=== PATIENT | female | born 1955 | race Caucasian/White ===

== ENCOUNTER 2019-08-07 23:30 | Emergency (ER) | payer MEDICARE, OTHER ==
[~2019-08-07] VITALS: Ht 167.6 cm; Wt 63.5 kg
[~2019-08-07 23:30] MED LIST: Augmentin 500-1 EACH PO; BENZ100A PO; CYCL10 PO; ESCI20 PO; NORT25 PO; OXYACE5T PO; OXYB5 PO; Prilosec Otc20 MG PO; RXOXYACE PO; VENL150ER PO
[2019-08-07] MEDS ORDERED: BUPROPION (23:44)
[2019-08-08 01:33] LABS: BASOPHILS ABSOLUTE AUTO 0.02 K/mm3 (0.00-0.23); BASOPHILS PERCENT AUTO 0 % (0-2); EOSINOPHILS ABSOLUTE AUTO 0.12 K/mm3 (0.00-0.68); EOSINOPHILS PERCENT AUTO 2 % (0-6); Hematocrit 43.3 % (33.0-51.0); Hemoglobin 13.9 g/dL (11.5-16.0); IMMATURE GRAN ABSOLUTE AUTO 0.03 K/mm3 (0.00-0.10); IMMATURE GRAN PERCENT AUTO 1 % (0-1); LYMPHOCYTES ABSOLUTE AUTO 1.57 K/mm3 (0.84-5.20); LYMPHOCYTES PERCENT AUTO 25 % (21-46); MONOCYTES ABSOLUTE AUTO 0.39 K/mm3 (0.16-1.47); MONOCYTES PERCENT AUTO 6 % (4-13); Mean Corpuscular HGB 29.7 pg (26.0-34.0); Mean Corpuscular HGB Conc 32.1 g/dL (31.5-36.5); Mean Corpuscular Volume 93 fL (80-100); Mean Platelet Volume 9.2 fL (9.1-12.4); NEUTROPHILS ABSOLUTE AUTO 4.22 K/mm3 (1.96-9.15); NEUTROPHILS PERCENT AUTO 67 % (41-73); Platelet Count 286 K/mm3 (150-400); RDW Coefficient Variation 13.6 % (11.7-14.2); RDW Standard Deviation 46.4 fL (35.1-46.3); Red Blood Cell Count 4.68 M/mm3 (3.80-5.20); White Blood Cell Count 6.35 K/mm3 (4.00-11.30)
[2019-08-08 01:49] LABS: Alanine Aminotransfer (ALT/SGP 33 U/L (12-78); Albumin, Blood 4.1 g/dL (3.4-5.0); Albumin/Globulin Ratio 1.2 (0.8-1.8); Alk Phos 71 U/L (50-136); Anion Gap 5 mmol/L (6-16); Aspartate Aminotrans (AST/SGOT 26 U/L (12-37); Bilirubin, Total 0.3 mg/dL (0.1-1.0); Blood Urea Nitrogen 11 mg/dL (8-24); Bun/Creatinine Ratio 16.6 (12.0-20.0); CO2, Blood 26 mmol/L (21-32); Calcium, Blood 9.1 mg/dL (8.5-10.1); Chloride, Blood 112 mmol/L (98-108); Creatinine, Blood 0.66 mg/dL (0.40-1.00); Globulin, Blood 3.5 g/dL (2.2-4.0); Glomerular Filtration Rate >60 (60-); Glucose, Blood 103 mg/dL (70-99); Potassium, Blood 3.7 mmol/L (3.5-5.5); Sodium, Blood 143 mmol/L (136-145); Total Protein, Blood 7.6 g/dL (6.4-8.2)
== END 2019-08-08 02:30 | disposition home or self-care (01) ==
LOC: ER 23:30
PROVIDERS: Emergency Medicine
DX: S06.369A Traumatic hemorrhage of cerebrum, unspecified, with loss of consciousness of unspecified duration, initial encounter (principal); S50.12XA Contusion of left forearm, initial encounter; S50.11XA Contusion of right forearm, initial encounter; Z88.2 Allergy status to sulfonamides; Z88.8 Allergy status to other drugs, medicaments and biological substances; Z79.899 Other long term (current) drug therapy; F17.200 Nicotine dependence, unspecified, uncomplicated; W22.8XXA Striking against or struck by other objects, initial encounter
CPT/HCPCS: 36415; 70450; 71046; 72125; 80053; 85025; 90471; 90714; 99285-25

== ENCOUNTER 2020-04-04 04:08 | Emergency (ER) | payer MEDICARE, OTHER ==
[~2020-04-04] VITALS: Ht 170.2 cm; Wt 72.6 kg
[~2020-04-04 04:08] MED LIST changes: +BUPROPION
[2020-04-04 04:35] LABS: BASOPHILS ABSOLUTE AUTO 0.08 K/mm3 (0.00-0.23); BASOPHILS PERCENT AUTO 1 % (0-2); Hematocrit 42.9 % (33.0-51.0); Hemoglobin 14.1 g/dL (11.5-16.0); LYMPHOCYTES ABSOLUTE AUTO 0.94 K/mm3 (0.84-5.20); LYMPHOCYTES PERCENT AUTO 12 % (21-46); MONOCYTES ABSOLUTE AUTO 0.33 K/mm3 (0.16-1.47); MONOCYTES PERCENT AUTO 4 % (4-13); Mean Corpuscular HGB 28.2 pg (26.0-34.0); Mean Corpuscular HGB Conc 32.9 g/dL (31.5-36.5); Mean Corpuscular Volume 86 fL (80-100); Mean Platelet Volume 10.4 fL (9.1-12.4); Platelet Count 203 K/mm3 (150-400); RDW Coefficient Variation 14.6 % (11.7-14.2); RDW Standard Deviation 46.1 fL (35.1-46.3); White Blood Cell Count 8.07 K/mm3 (4.00-11.30)
[2020-04-04 04:38] LABS: EOSINOPHILS ABSOLUTE AUTO 0.05 K/mm3 (0.00-0.68); EOSINOPHILS PERCENT AUTO 1 % (0-6); IMMATURE GRAN ABSOLUTE AUTO 0.86 K/mm3 (0.00-0.10); IMMATURE GRAN PERCENT AUTO 11 % (0-1); NEUTROPHILS ABSOLUTE AUTO 5.81 K/mm3 (1.96-9.15); NEUTROPHILS PERCENT AUTO 72 % (41-73)
[2020-04-04 05:00] LABS: Source, Urine Clean Catch
[2020-04-04 05:02] LABS: Appearance, Urine Clear (Clear); Bilirubin, Urine Neg (Neg); Blood, Urine 1+ (Neg); Color, Urine Amber (P-Yellow); Glucose Qualitative, Urine Neg (Neg); Ketones, Urine 1+ (Neg); Leukocyte Esterase, Urine 1+ (Neg); Nitrite, Urine Neg (Neg); Protein, Urine 1+ (Neg); Specific Gravity, Urine 1.015 (1.003-1.022); Urobilinogen, Urine 2+ (Normal)
[2020-04-04 05:06] LABS: Alanine Aminotransfer (ALT/SGP 1658 U/L (12-78); Albumin, Blood 2.5 g/dL (3.4-5.0); Albumin/Globulin Ratio 0.6 (0.8-1.8); Alk Phos 572 U/L (50-136); Anion Gap 15 mmol/L (6-16); Aspartate Aminotrans (AST/SGOT 561 U/L (12-37); Bilirubin, Total 2.9 mg/dL (0.1-1.0); Blood Urea Nitrogen 30 mg/dL (8-24); Bun/Creatinine Ratio 36.8 (12.0-20.0); CO2, Blood 15 mmol/L (21-32); Calcium, Blood 9.1 mg/dL (8.5-10.1); Chloride, Blood 103 mmol/L (98-108); Creatinine, Blood 0.82 mg/dL (0.40-1.00); Ethanol (Alcohol), Blood, Med <3 mg/dL; Globulin, Blood 4.2 g/dL (2.2-4.0); Glomerular Filtration Rate >60 (60-); Glucose, Blood 126 mg/dL (70-99); Potassium, Blood 3.1 mmol/L (3.5-5.5); Sodium, Blood 133 mmol/L (136-145); Total Protein, Blood 6.7 g/dL (6.4-8.2)
[2020-04-04 05:10] LABS: BASOPHILS PERCENT MAN 0 % (0-2); EOSINOPHILS ABSOLUTE MAN 0.16 K/mm3 (0.00-0.68); EOSINOPHILS PERCENT MAN 2 % (0-6); LYMPHOCYTES ABSOLUTE MAN 1.29 K/mm3 (0.84-5.20); LYMPHOCYTES PERCENT MAN 16 % (21-46); METAMYELOCYTE ABSOLUTE MAN 0.08 K/mm3 (0.00-0.00); METAMYELOCYTE PERCENT MAN 1 % (0-0); MONOCYTES ABSOLUTE MAN 0.16 K/mm3 (0.16-1.47); MONOCYTES PERCENT MAN 2 % (4-13); NEUTROPHILS ABSOLUTE MAN 6.37 K/mm3 (1.96-9.15); SEG NEUTROPHILS PERCENT MAN 79 % (41-73); TOTAL CELLS COUNTED 100
[2020-04-04 05:13] LABS: Red Blood Cells, Urine 0-2 /hpf (0-2)
[2020-04-04 05:14] LABS: Bacteria Many /hpf; Squamous Epithelial Cells Not Seen /hpf (Few)
[2020-04-04] MEDS ORDERED: CIPR500 PO (07:19)
== END 2020-04-04 09:45 | disposition home or self-care (01) ==
LOC: ER 04:08
PROVIDERS: Emergency Medicine
DX: N39.0 Urinary tract infection, site not specified (principal); E86.0 Dehydration; E87.6 Hypokalemia; R74.8 Abnormal levels of other serum enzymes; F17.200 Nicotine dependence, unspecified, uncomplicated; Z88.2 Allergy status to sulfonamides; Z88.1 Allergy status to other antibiotic agents; Z79.899 Other long term (current) drug therapy
CPT/HCPCS: 74176; 76705; 80053; 81001; 82140; 83605; 85025; 87077; 87086; 87186; 93005; 93010; 96360; 96361; 99284-25; A9270; G0480; J7030; P9612

== ENCOUNTER 2020-04-07 12:00 | Inpatient (IN) | payer MEDICARE, OTHER ==
[~2020-04-07] VITALS: Ht 172.7 cm; Wt 75.5 kg
[~2020-04-07 12:00] MED LIST changes: +CIPR500 PO
[2020-04-07 12:31] LABS: Hematocrit 35.4 % (33.0-51.0); Hemoglobin 11.9 g/dL (11.5-16.0); Mean Corpuscular HGB 27.5 pg (26.0-34.0); Mean Corpuscular HGB Conc 33.6 g/dL (31.5-36.5); Mean Corpuscular Volume 82 fL (80-100); Mean Platelet Volume 10.4 fL (9.1-12.4); Platelet Count 164 K/mm3 (150-400); RDW Coefficient Variation 15.7 % (11.7-14.2); RDW Standard Deviation 46.8 fL (35.1-46.3); Red Blood Cell Count 4.32 M/mm3 (3.80-5.20); White Blood Cell Count 30.42 K/mm3 (4.00-11.30)
[2020-04-07 12:43] LABS: Alanine Aminotransfer (ALT/SGP 366 U/L (12-78); Albumin/Globulin Ratio 0.5 (0.8-1.8); Alk Phos 545 U/L (50-136); Anion Gap 10 mmol/L (6-16); Aspartate Aminotrans (AST/SGOT 96 U/L (12-37); Bilirubin, Total 2.6 mg/dL (0.1-1.0); Blood Urea Nitrogen 30 mg/dL (8-24); CO2, Blood 20 mmol/L (21-32); Calcium, Blood 9.5 mg/dL (8.5-10.1); Chloride, Blood 109 mmol/L (98-108); Creatinine, Blood 0.67 mg/dL (0.40-1.00); Globulin, Blood 4.3 g/dL (2.2-4.0); Glomerular Filtration Rate >60 (60-); Glucose, Blood 109 mg/dL (70-99); Potassium, Blood 3.6 mmol/L (3.5-5.5); Sodium, Blood 139 mmol/L (136-145); Total Protein, Blood 6.3 g/dL (6.4-8.2)
[2020-04-07 12:57] LABS: BAND PERCENT MAN 2 % (0-8); BASOPHILS PERCENT MAN 0 % (0-2); EOSINOPHILS PERCENT MAN 0 % (0-6); LYMPHOCYTES ABSOLUTE MAN 1.21 K/mm3 (0.84-5.20); LYMPHOCYTES PERCENT MAN 4 % (21-46); MONOCYTES ABSOLUTE MAN 1.21 K/mm3 (0.16-1.47); MONOCYTES PERCENT MAN 4 % (4-13); NEUTROPHILS ABSOLUTE MAN 27.98 K/mm3 (1.96-9.15); SEG NEUTROPHILS PERCENT MAN 90 % (41-73); TOTAL CELLS COUNTED 100
[2020-04-07 13:29] LABS: International Normalized Ratio 1.21; Prothrombin Time Results 12.8 Sec (9.7-11.5); Salicylate <1.7 mg/dL (2.8-20.0)
[2020-04-07 13:35] LABS: Acetaminophen, Random <2.0 ug/mL (10.0-30.0)
[2020-04-07 13:52] LABS: Source, Urine Catheter
[2020-04-07 14:10] LABS: Appearance, Urine Hazy (Clear); Bilirubin, Urine Neg (Neg); Blood, Urine 2+ (Neg); Color, Urine Amber (P-Yellow); Glucose Qualitative, Urine Neg (Neg); Ketones, Urine 1+ (Neg); Leukocyte Esterase, Urine 1+ (Neg); Nitrite, Urine Neg (Neg); Protein, Urine 1+ (Neg); Urobilinogen, Urine 1+ (Normal)
[2020-04-07 14:17] LABS: Bacteria Mod /hpf; Red Blood Cells, Urine Not Seen /hpf (0-2); Squamous Epithelial Cells Not Seen /hpf (Few); White Blood Cells, Urine 25-50 /hpf (0-5)
[2020-04-07] MEDS ORDERED: DULOXETINE HCL60 M1 PO (15:05)
[2020-04-07] MEDS ORDERED: CYCL10 PO (15:05)
[2020-04-07] MEDS ORDERED: BUPROPION XL150 M1 PO (15:07)
--- NOTE | 2020-04-07 17:15 | NUR ---
CALLED DR MILLIGAN [facility] FOR CONSULT. DONE. HE CALLED. HOLD ;LOVENOX AND MAKE NPO MIDNITE FOR POSS PROCEDURE. DONE
--- NOTE | 2020-04-07 19:39 | NUR ---
PT ADMITTED AT 1730. SISTER MATTI IN TO HELP. I WAS ABLE TO DO QUICK ADMIT AND THE ASSESSMENT. BOTH IV FLUID BOLUS' DONE, MAINT FLUIDS STARTED. CALLED DR MILLIGAN FOR REFERRAL. HE CALLED BACK AND NPO MIDNITE AND HOLD LOVENOX. WILL SEE TOMORROW. DISCUSSED WITH ONCOMMING RN. H/R REG, NO MURMER ANOTED. TELE WAS ORDERED. LUNGS CLEAR, RESP EASY, UNLABORED. ON R.A. BT X4 LAST BM PERHAPS 2 DAYS. VOIDS INCONT. PLACED ATTENDS. PT HAS MULT SCABS ON EXTREMETIES, SMALL BRUISE ON INNER THIGH. WET MIXER AND MOVEMENT ON RT HAND IS POOR. PERHAPS RELATED TO PAIN FROM SHOULDER LESION. PT ABLE TO TOUCH NOSE WITHEACH HAND FOREFINGER. VERY SLOW WITH RT HAND. STATES PAIN. PT IS SLOW TO RESPOND, BUT RESPONDS AORIENTED 2-3. BED IN LOW POSITION,C ALL LITE IN REACH, BED ALARM ON FOR SAFETY, SISTER AT BEDSIDE.
[2020-04-07] MEDS ORDERED: CYCL10 (19:43)
[2020-04-07] MEDS ORDERED: IBUP600 (19:45)
[2020-04-07] MEDS ORDERED: Cipro500 MG PO (19:45)
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
--- NOTE | 2020-04-08 02:22 | NUR ---
DR Isbell gave 1 x dose of ativan for anxiety 0.5 mg for restless behavior. He also rx dilaudid 1 mg iv q 6 prn severe pain. Sister continues at bedside.
[2020-04-08 03:31] LABS: BASOPHILS ABSOLUTE AUTO 0.08 K/mm3 (0.00-0.23); BASOPHILS PERCENT AUTO 1 % (0-2); EOSINOPHILS ABSOLUTE AUTO 0.03 K/mm3 (0.00-0.68); EOSINOPHILS PERCENT AUTO 0 % (0-6); Hematocrit 30.5 % (33.0-51.0); Hemoglobin 10.2 g/dL (11.5-16.0); IMMATURE GRAN ABSOLUTE AUTO 0.59 K/mm3 (0.00-0.10); IMMATURE GRAN PERCENT AUTO 4 % (0-1); LYMPHOCYTES ABSOLUTE AUTO 0.92 K/mm3 (0.84-5.20); LYMPHOCYTES PERCENT AUTO 6 % (21-46); MONOCYTES ABSOLUTE AUTO 0.62 K/mm3 (0.16-1.47); MONOCYTES PERCENT AUTO 4 % (4-13); Mean Corpuscular HGB 27.9 pg (26.0-34.0); Mean Corpuscular HGB Conc 33.4 g/dL (31.5-36.5); Mean Corpuscular Volume 84 fL (80-100); NEUTROPHILS ABSOLUTE AUTO 14.03 K/mm3 (1.96-9.15); NEUTROPHILS PERCENT AUTO 86 % (41-73); Platelet Count 176 K/mm3 (150-400); RDW Coefficient Variation 16.1 % (11.7-14.2); RDW Standard Deviation 48.7 fL (35.1-46.3); Red Blood Cell Count 3.65 M/mm3 (3.80-5.20); White Blood Cell Count 16.27 K/mm3 (4.00-11.30)
[2020-04-08 03:51] LABS: Alanine Aminotransfer (ALT/SGP 255 U/L (12-78); Albumin, Blood 1.7 g/dL (3.4-5.0); Albumin/Globulin Ratio 0.4 (0.8-1.8); Alk Phos 457 U/L (50-136); Anion Gap 6 mmol/L (6-16); Aspartate Aminotrans (AST/SGOT 87 U/L (12-37); Blood Urea Nitrogen 20 mg/dL (8-24); CO2, Blood 22 mmol/L (21-32); Calcium, Blood 8.7 mg/dL (8.5-10.1); Chloride, Blood 116 mmol/L (98-108); Creatinine, Blood 0.57 mg/dL (0.40-1.00); Glomerular Filtration Rate >60 (60-); Glucose, Blood 167 mg/dL (70-99); Magnesium, Blood 2.4 mg/dL (1.6-2.4); Potassium, Blood 3.8 mmol/L (3.5-5.5); Sodium, Blood 144 mmol/L (136-145); Total Protein, Blood 5.7 g/dL (6.4-8.2)
--- NOTE | 2020-04-08 04:04 | NUR ---
positive blood culture called Lynda in Pharmacy to verify proper antibiotic coverage. Reestablished IV access with ultrasound guided placement. PT resting quietly after 0.5 mg po ativan given. incontinent of large amt of urine foul smelling.
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
--- NOTE | 2020-04-08 10:56 | NUR ---
Echocardiogram completed.
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
--- NOTE | 2020-04-08 14:16 | NUR ---
PT GOING TO SURGERY NOW
--- NOTE | 2020-04-08 15:37 | NUR ---
Spiritual cre visit conducted. Patient's Day surgery RN Genna rosarios me with a request from family for prayer. I arrive in the day surgery prep area and patient's sister Dolores is present and informs me that things are not going well for patient and that patient's O2 stats are 87 and they would like me to pray for patient and for the surgery. I gladly provide prayer. Dolores also asks if I could go fing patient's other sister Rashida. I retrieve Rashida and bring her to the surgery area. I will continue to remain available to patient and family.
--- NOTE | 2020-04-08 15:57 | NUR ---
PT REPORT FROM RAFAL SMITH RN, SISTERS AT BEDSIDE, PT SOMNOLENT, STARTLED WITH TRANSFER TO [facility]. SISTERS VERY ANXIOUS AT BEDSIDE, BROUGHT PT TO [facility] VIA [facility] WITHOUT DIFFICULTY, PT O2SATS AT 87% ON RA. TITRATED OXYGEN UP TO 3LNC TO OBTAIN SATS SUSTAINED AT 93%. TEMP 103.4, UNCOVERED PT AND PLACED COOL CLOTH TO HEAD, PT DIAPHORETIC AND FLUSHED, HR TACHY IN 110'S. B/P HYPERTENSIVE. PROVIDED EMOTIONAL SUPPORT TO FAMILY AFTER TAKING CARE OF PATIENT. SPIRITUAL CARE AND PATIENT ADVOCATE IMPLEMENTED INTO PT CARE. SPENT ALOT OF TIME TRYING TO KEEP FAMILIES ANXIETY LEVEL AT A MINIMUM WITHOUT MUCH SUCCESS. DR MILLIGAN AND ANIKA AWARE OF PT ASSESSMENT AND FAMILY CONCERNS.
--- NOTE | 2020-04-08 16:27 | NUR ---
04/08/20 1627 Melissa Benitez ALL COUNTS CORRECT.
--- NOTE | 2020-04-08 18:30 | NUR ---
SUMMARY PT BACK FROM SURGERY, FAMILY AT THE BEDSIDE, SISTERS HAVE BEEN AT THE BEDSIDE FOR MOST OF THE DAY, PT HAS REMAINED CONFUSED FOR MOST OF THE DAY, PT MED PER EMAR FOR PAIN, PT DOES NOT USE THE CALL LIGHT APPROPRIATELY, PT ONLY ANSWERING SIMPLE YES AND NO QUESTIONS, PT RETURNED WITH A DRESSING IN PLACE TO THE R SHOULDER AND A JONNY DRAIN IN PLACE, PT HAS SANGUINEOUS DRAINAGE FROM THE JONNY AND AROUND THE TUBING, DRESSING HAS BEEN REINFORCED, PT RESTLESS IN BED, THRASHING AROUND, NOT AWAKE ENOUGH TO ANSWER QUESTIONS, FAMILY WILL REMAIN AT THE BEDSIDE T/O THE NIGHT, VSS, WILL CONT TO MONITOR
[2020-04-09 05:34] LABS: Hematocrit 27.2 % (33.0-51.0); Hemoglobin 8.8 g/dL (11.5-16.0); Mean Corpuscular HGB 27.8 pg (26.0-34.0); Mean Corpuscular HGB Conc 32.4 g/dL (31.5-36.5); Mean Corpuscular Volume 86 fL (80-100); Mean Platelet Volume 9.9 fL (9.1-12.4); Platelet Count 269 K/mm3 (150-400); RDW Coefficient Variation 15.9 % (11.7-14.2); RDW Standard Deviation 50.2 fL (35.1-46.3); Red Blood Cell Count 3.17 M/mm3 (3.80-5.20); White Blood Cell Count 14.32 K/mm3 (4.00-11.30)
[2020-04-09 05:54] LABS: Anion Gap 6 mmol/L (6-16); Blood Urea Nitrogen 14 mg/dL (8-24); Bun/Creatinine Ratio 28.9 (12.0-20.0); CO2, Blood 23 mmol/L (21-32); Calcium, Blood 7.7 mg/dL (8.5-10.1); Chloride, Blood 120 mmol/L (98-108); Creatinine, Blood 0.48 mg/dL (0.40-1.00); Glomerular Filtration Rate >60 (60-); Glucose, Blood 144 mg/dL (70-99); Potassium, Blood 3.7 mmol/L (3.5-5.5); Sodium, Blood 149 mmol/L (136-145); Vancomycin, Trough 11.5 ug/mL (5.0-10.0)
--- NOTE | 2020-04-09 06:04 | NUR ---
SHIFT SUMMARY: ALERT, CONFUSED, ABLE TO SPEAK A FEW SENTENCES BETWEEN MEDICATING FOR PAIN. SISTER AT BEDSIDE. SLEPT START OF SHIFT DUE TO DILUDID. THEN SHE BECAME VERY RESTLESS, TOSSING AND TURNING IN BED, UNABLE TO GET COMFORTABLE, AND NOT UNDERSTANDING WHAT IS HAPPENING. VS WITH TACHYCARDIA IN THE 110'S, FEBRILE RUNNING 99. STILL AWAITING FINAL RESULTS OF BLOOD CULTURES. RESTLESSNESS CONTINUED TO INCREASE THROUGHOUT THE NIGHT, R/T ANXIOUSNESS AND BACK PAIN. DILAUDID GIVEN EVERY 4 HOURS BUT SHE WOULD WAKE UP PRIOR TO THAT PULLING AT LINES, VERY RESTLESS IN BED. ATTEMPTED TO GIVE FENTALYL 50MCQ AND ATIVAN ORAL. FENTALYL DID NOTHING FOR HER PAIN, AND THE ORAL ATIVAN SHE WOULD NOT SWALLOW BUT ALLOWED IT TO DISSOLVE ON HER TONGUE. DID NOT GIVE ANY OTHER ORAL MEDS DUE TO RISK OF ASPIRATION. HAD TO CALL MD DUE TO INCREASE AGGITATION RESTLESS, GOT IV ATIVAN THIS AM AND GAVE 1MG, THIS HELPED SOME. DRESSING TO RIGHT SHOULDER HAS BEEN LEAKING SEROUS SANGUOUS FLUID AROUND THE DRAIN TUBE SITE, RE-ENFORCED DRESSING WITH FOAM DRESSING AND TAPE. DRAIN HAS PUT OUT 20CC OF SEROUS SANGUOUS. SHE IS CONSTANTLY MOVING ARM WHICH IS CAUSING IT TO LEAK. LEFT DRESSING IN PLACE MD DOES FIRST DRESSING CHANGE. IV ANTIBOTICS INFUSED WITH NO PROBLEMS. TELE RUNNING SINUS TACH. ATTENDS CHANGE PRN. CALL LIGHT REMAINED IN REACH OF SISTER WHO STAYED THE NIGHT. WILL REPORT TO DAY SHIFT WHEN THEY ARRIVE.
--- NOTE | 2020-04-09 14:38 | NUR ---
Spiritual care visit conducted. I meet with patient's sister, Rashida, outside the because patient is sleeping. Rashida tells me about the events of yesterday and how things improved once patient was in for the procedure. Rashida shares about the emotions that she is trying to process and that she is trying to get out of town. I listen empathically, encourage self-care and provide a calming presence. I will continue to remain available to patient and family.
--- NOTE | 2020-04-09 17:01 | NUR ---
SUMMARY PT RESTING IN THE CHAIR AT THE BEDSIDE, FAMILY IN THE ROOM VISITING, PT HAS BEEN CONFUSED AND RESTLESS T/O THE DAY, PT MORE AWAKE AND ALERT THAN YESTERDAY, PT ABLE TO GET UP WITH 2P ASSIST AT THE BEGINNING OF THE DAY AND IS NOW A 1P ASSIST, PT WAS INCONTINENT FOR MOST OF THE DAY, HAS NOW BEGUN TO ASK TO GET UP PRIOR TO VOIDING, PT TOLERATING PILLS WHOLE WITH WATER AND TOLERATED BEING FED HER MEALS, PT WITH POOR DEPTH PERCEPTION AND UNABLE TO BRING A CUP TO HER MOUTH, PT HAS BEEN MED PER EMAR FOR PAIN, PHYSICAL THERAPY HAS WORKED WITH THE PT AND ARE RECOMMENDING SNF AT THIS TIME, FAMILY IS AGREEABLE AT THIS TIME, DR MAYO HAS BEEN IN TO SEE THE PT AND HAS CHANGED THE ANTIBIOTICS, DR MILLIGAN HAS CAME IN AND REMOVED THE JONNY DRAIN, PT ALBER WELL, VSS, NO COMPLAINTS, NO ACUTE CHANGES, WILL CONT TO MONITOR
--- NOTE | 2020-04-09 20:00 | NUR ---
ASSUMED CARE: THOMAS IS UP IN THE RECLINER SLEEPING COMFORTABLY. DOES OPEN EYES TO HER NAME. SHE IS ABLE TO ANSWER SIMPLE YES NO QUESTIONS. DENIES PAIN AT THIS TIME. JUST GOT PAIN MEDS PRIOR TO SHIFT CHANGE WHICH HAS MADE HER SLEEPY. FOLLOWS DIRECTIONS WELL. DRESSING TO SHOULDER IS STILL INTACT, MILD DRAINAGE NOTED, NO LEAKAGE. IV INFUSING FLUIDS WITH NO PROBLEMS. ATTENDS DRY. CHAIR ALARM IS ON. WILL CONTINUE TO MONITOR.
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
[2020-04-10 05:34] LABS: Hematocrit 27.5 % (33.0-51.0); Hemoglobin 8.7 g/dL (11.5-16.0); Mean Corpuscular HGB 27.5 pg (26.0-34.0); Mean Corpuscular HGB Conc 31.6 g/dL (31.5-36.5); Mean Corpuscular Volume 87 fL (80-100); Platelet Count 329 K/mm3 (150-400); RDW Coefficient Variation 15.7 % (11.7-14.2); RDW Standard Deviation 49.6 fL (35.1-46.3); Red Blood Cell Count 3.16 M/mm3 (3.80-5.20); White Blood Cell Count 10.65 K/mm3 (4.00-11.30)
[2020-04-10 05:52] LABS: Anion Gap 5 mmol/L (6-16); Blood Urea Nitrogen 16 mg/dL (8-24); Bun/Creatinine Ratio 26.7 (12.0-20.0); CO2, Blood 27 mmol/L (21-32); Calcium, Blood 8.2 mg/dL (8.5-10.1); Chloride, Blood 110 mmol/L (98-108); Glomerular Filtration Rate >60 (60-); Glucose, Blood 135 mg/dL (70-99); Potassium, Blood 3.7 mmol/L (3.5-5.5); Sodium, Blood 142 mmol/L (136-145)
--- NOTE | 2020-04-10 06:05 | NUR ---
SHIFT SUMMARY: THOMAS HAS IMPROVED VERY WELL THROUGHOUT THE NIGHT. SHE IS SPEAKING IN FULL SENTENCES, HOLDING CONVERSATIONS, RESPONDING NORMAL TO QUESTIONS. NOT RESTLESS. HAS REPORTED PAIN WHEN SHE HAS HAD IT. HAS BEEN DOWNING FLUIDS LIKE CRAZY. SISTER HAS BEEN AT HER SIDE ALL NIGHT. SHE HAS BEEN GETTING UP TO BSC WITH ASSIST. VS HAVE REMAINED STABLE. IV FLUIDS AND ANTIBOITICS INFUSED WITH OUT PROBLEMS. SHE STILL HAS SOME CONFUSION ON WHERE SHE IS AT AND WHAT HAD HAPPENED TO HER, BUT SHE IS REMEMBERING CONVERSATIONS AND DIRECTIONS. CHAIR ALARM IS ON, CALL LIGHT IN REACH. WILL REPORT TO DAY SHIFT.
[2020-04-10 08:09] LABS: HBSAG SCREEN Negative (Negative); HEP A AB, IGM Negative (Negative); HEP B CORE AB, IGM Negative (Negative); HEP C VIRUS AB <0.1 (0.0-0.9)
--- NOTE | 2020-04-10 17:11 | NUR ---
SUMMARY PT RESTING IN THE CHAIR AT THE BEDSIDE, PT HAS BEEN IN THE CHAIR FOR MOST OF THE DAY, DOES NOT TOLERATE BEING IN THE BED, IS CONFUSED AND RESTLESS, UP WITH 1-2 PERSON ASSIST, MIXED CONTINENCE, TAKES HER PILLS WHOLE WITH WATER WELL, DOES NEED TO BE FED MEALS, PT WORKED WITH PT/OT, STILL WITH A RECOMMENDATION OF SNF AT DISCHARGE, PT MED PER EMAR FOR S/S PAIN, DR MILLIGAN HERE TO CHANGE THE DRESSING TO THE R SHOULDER, 5 INCH LONG INCISION WITH STITCHES INTACT, AREA BRUISED, NO BLEEDING OR OOZING NOTED, PT ALBER WELL, PT WITH LOW GRADE TEMP, GIVEN TYLENOL WITH GOOD RESULTS, VSS, WILL CONT TO MONITOR
--- NOTE | 2020-04-10 20:00 | NUR ---
ASSUMED CARE. THOMAS IS IMPROVING WELL. SHE IS ABLE TO STATES PLACE, EVENT, FAMILY, FOLLOW DIRECTIONS, AND READ THE DATE AND TIME OFF THE BOARD. SHE KNOWS HOW TO USE HER CALL LIGHT, AND DOES NOT TRY TO GET UP ON HER OWN. STILL REPORTS PAIN IN SHOULDER AND ALL OVER. MEDICATED FOR PAIN AND DISCOMFORT. IV ANTIBOTIC STARTED. STILL DRINKING SEVERAL GLASSES OF WATER THROUGHOUT THE DAY. DRY MOUTH IS IMPROVING. NOTED SHE IS STARTED TO GET THRUSH ON THE SIDE OF HER GUMS AND BACK OF THROAT. SHE ALSO HAS NOT HAD A BM SINCE SHE WAS ADMITTED. WILL CALL MD REGARDING THESE ISSUES. CALL LIGHT IS IN HER REACH.
--- NOTE | 2020-04-10 20:25 | NUR ---
LAB CALLED TO REPORT POSITIVE BLOOD CULTURES GRAM + COCCI IN CLUSTERS. THIS IS THE SAME GROWTH SHE HAD ON THE LAST BLOOD CULTURES. PAIN BETTER CONTROLLED.
--- NOTE | 2020-04-10 21:17 | NUR ---
CALLED TOÑA RONQUILLO, REPORTED NO BM SINCE ADMIT AND THRUSH IN MOUTH. ORDER FOR NYSTATIN SWISH AND SWALLOW, COLACE AND SENNA. WILL START TONIGHT.
--- NOTE | 2020-04-10 23:52 | NUR ---
LAB CALLED WITH ANOTHER POSITIVE BLOOD CULTURE WITH THE SAME BACTERIA.
[2020-04-11 05:28] LABS: Hematocrit 30.4 % (33.0-51.0); Hemoglobin 9.8 g/dL (11.5-16.0); Mean Corpuscular HGB 27.3 pg (26.0-34.0); Mean Corpuscular HGB Conc 32.2 g/dL (31.5-36.5); Mean Corpuscular Volume 85 fL (80-100); Platelet Count 427 K/mm3 (150-400); RDW Coefficient Variation 14.9 % (11.7-14.2); RDW Standard Deviation 45.9 fL (35.1-46.3); Red Blood Cell Count 3.59 M/mm3 (3.80-5.20); White Blood Cell Count 13.54 K/mm3 (4.00-11.30)
[2020-04-11 05:58] LABS: Alanine Aminotransfer (ALT/SGP 270 U/L (12-78); Albumin, Blood 1.6 g/dL (3.4-5.0); Albumin/Globulin Ratio 0.4 (0.8-1.8); Alk Phos 305 U/L (50-136); Anion Gap 7 mmol/L (6-16); Aspartate Aminotrans (AST/SGOT 131 U/L (12-37); Bilirubin, Total 2.4 mg/dL (0.1-1.0); Blood Urea Nitrogen 12 mg/dL (8-24); Bun/Creatinine Ratio 18.3 (12.0-20.0); CO2, Blood 27 mmol/L (21-32); Calcium, Blood 8.3 mg/dL (8.5-10.1); Chloride, Blood 102 mmol/L (98-108); Creatinine, Blood 0.65 mg/dL (0.40-1.00); Globulin, Blood 4.5 g/dL (2.2-4.0); Glomerular Filtration Rate >60 (60-); Glucose, Blood 94 mg/dL (70-99); Potassium, Blood 3.6 mmol/L (3.5-5.5); Sodium, Blood 136 mmol/L (136-145); Total Protein, Blood 6.1 g/dL (6.4-8.2)
--- NOTE | 2020-04-11 06:12 | NUR ---
SHIFT SUMMARY: ALERT AND ORIENTED TO PLACE, EVENT, FAMILY, FOLLOWING DIRECTION, ABLE TO USE CALL LIGHT, AND HOLD CONVERSATION. SHE DOES HAVE SOME TROUBLE WITH DATE AND TIME. SLEPT WELL THROUGHOUT THE NIGHT IN THE BED. DID GET PAIN MEDICATION X2 THIS EVENING. 2ND ROUND OF BLOOD CULTURES POSITIVE FOR GRAM+ COCCI IN CLUSTERS, SAME PREVIOUS ONES. UNABLE TO COLLECT UA DUE TO INCONTIENCE IN THE NIGHT. CALLED TOÑA BOBBIN DOFFER AND REPORTED THRUSH IN ORAL CAVITY, AND NO BM SINCE ADMIT. GOT COLACE, SENNA AND NYSTATIN SWISH AND SWALLOW. ADMINISTERED ALL THREE. DISCUSSED POSSIBLE NEED FOR DIFLUCAN TO PREVENT YEAST INFECTION, AND SHE WILL NEED TO BE STARTED ON PROBIOTICS. VS STILL TACHY AT TIMES, AFEBRILE. WBC ELEVATED UP TO 13 THIS MORNING. LIVER ENZYMES ALSO ELEVATED. BED ALARM HAS REMAINED ON. CALL LIGHT IN REACH, WILL DISCUSS CARE WITH DAY SHIFT.
--- NOTE | 2020-04-11 11:42 | NUR ---
I had premission to bladder scan julio, the amount i scanned was 781 at 1135
[2020-04-11 13:36] LABS: U Amphetamine Screen Not Detected; U Barbituate Screen Not Detected; U Benzodiazapine Screen DETECTED; U Cocaine Screen Not Detected; U Methadone Screen Not Detected; U Methamphetamine Screen Not Detected
[2020-04-11 13:37] LABS: U Buprenorphine Screen Not Detected; U Cannabinoids Screen Not Detected; U Opiates Screen Not Detected; U Oxycodone Screen DETECTED; U Phencyclidine Screen Not Detected; U Propoxyphene Screen Not Detected
--- NOTE | 2020-04-11 17:20 | NUR ---
PT AOX2-3 IT CAN VERY ON HOW AWAKE SHE IS AT THE TIME. PT STARTED SHIFT OUT LOOKING VERY UNCOMFORTABLE AND WAS STATING HER PAIN WAS A 7. PT WAS TREATED FOR PAIN PER EMAR. PT SEEMED TO DO BETTER THE MORNING WENT BY AND IS NOW COMFORTABLE IN HER ROOM AND DOESN'T APPEAR TO BE IN PAIN WHEN LOOKING AT HER. PT IS ALSO TALKING MORE. CALL LIGHT IS WITHIN REACH WILL CONTINUE TO MONITOR.
--- NOTE | 2020-04-11 20:51 | NUR ---
PT HAD LARGE INCONTINENT ATTENDS DIAPERS; PT WAS BLADDER SCANNED FOR > 691; DR RUIZ NOTIFIED WITH ORDERS TO PLACE IBRAHIM CATHETER. (MD WAS ADVISED OF PREVIOUS STRAIGHT CATHETERIZATION AT 1100 TODAY).
--- NOTE | 2020-04-11 21:44 | NUR ---
64 Y/O FEMALE RESTING COMFORTABLY IN BED; CHEERFUL; ALERT AND ORIENTED X 3; ABLE TO FOLLOW SIMPLE VERBAL COMMANDS; RIGHT SHOULDER DRESSING DRY AND INTACT; DENIES PAIN.
[2020-04-11 22:02] LABS: Source, Urine Catheter
[2020-04-11 22:04] LABS: Bilirubin, Urine Neg (Neg); Blood, Urine Neg (Neg); Glucose Qualitative, Urine Neg (Neg); Ketones, Urine Neg (Neg); Leukocyte Esterase, Urine Neg (Neg); Nitrite, Urine Neg (Neg); Protein, Urine Neg (Neg); Urobilinogen, Urine 2+ (Normal)
[2020-04-11 22:14] LABS: Appearance, Urine Clear (Clear); Color, Urine Yellow (P-Yellow)
--- NOTE | 2020-04-12 03:50 | NUR ---
SHIFT SUMMARY: 64 Y/O FEMALE RESTED COMFORTABLY ALL SHIFT; PT IS ALERT AND ORIENTED X 4, ABLE TO FOLLOW ALL SIMPLE VERBAL COMMANDS; PT HAD BLADDER SCAN RESULT > 691 WITH HOSPITALIST NOTIFIED AND IBRAHIM CATHETER WAS PLACED WITH 700ML FRANSISCA FLUID NOTED BY PASCUAL MCGOVERN RN (UA SENT TO LAB); C/O RIGHT SHOULDER PAIN 7/10 WITH TYLENOL 650MG PO GIVEN WITH RELIEF FELT; RIGHT SHOULDER DRESSING DRY AND INTACT; TELEMETRY REFLECTS SINUS TACHYCARDIA PER BRANT--INTERNAL RECRUITER; BED LOW POSITION WITH CALL LIGHT AT SIDE.
--- NOTE | 2020-04-12 19:08 | NUR ---
SHIFT SUMMARY: NO ACUTE CHANGES TO REPORT THIS SHIFT. PT A&O; OCC CONFUSION; CALM AND COOPERATIVE WITH CARE. MEDICATED FOR R SHOULDER PAIN PER EMAR; LIDOCAINE TOP TO L FLANK. TELE IN PLACE; ST IN LOW 100s. FOLE IN PLACE; PATENT & DRAINING. I&D ON R SHOULDER ON 04/10; DRESSING C/D/I. POSITIVE BLOOD CULTURES; STAPH GROWING; OXACILLIN Q4. REPORT GIVEN TO ONCOMING RN.
--- NOTE | 2020-04-13 05:10 | NUR ---
SUMMARY PT HAD PAIN OFF AND ON T/O SHIFT. PT TX PER EMAR W/ RELIEF. PT HAD NO NOTED CHILLS OR FEVERS. PT HAS SLEPT WELL THIS SHIFT. PT CURRENTLY SLEEPING IN NO DISTRESS. CALL LIGHT IN REACH.
[2020-04-13 05:18] LABS: Hematocrit 23.9 % (33.0-51.0); Hemoglobin 7.6 g/dL (11.5-16.0); Mean Corpuscular HGB 27.2 pg (26.0-34.0); Mean Corpuscular HGB Conc 31.8 g/dL (31.5-36.5); Mean Corpuscular Volume 86 fL (80-100); Platelet Count 544 K/mm3 (150-400); RDW Coefficient Variation 14.9 % (11.7-14.2); RDW Standard Deviation 46.2 fL (35.1-46.3); Red Blood Cell Count 2.79 M/mm3 (3.80-5.20); White Blood Cell Count 9.16 K/mm3 (4.00-11.30)
[2020-04-13 05:42] LABS: Alanine Aminotransfer (ALT/SGP 93 U/L (12-78); Albumin, Blood 1.2 g/dL (3.4-5.0); Albumin/Globulin Ratio 0.3 (0.8-1.8); Alk Phos 200 U/L (50-136); Anion Gap 8 mmol/L (6-16); Aspartate Aminotrans (AST/SGOT 38 U/L (12-37); Blood Urea Nitrogen 9 mg/dL (8-24); Bun/Creatinine Ratio 14.4 (12.0-20.0); CO2, Blood 28 mmol/L (21-32); Calcium, Blood 7.6 mg/dL (8.5-10.1); Chloride, Blood 102 mmol/L (98-108); Creatinine, Blood 0.63 mg/dL (0.40-1.00); Globulin, Blood 4.1 g/dL (2.2-4.0); Glomerular Filtration Rate >60 (60-); Glucose, Blood 100 mg/dL (70-99); Potassium, Blood 3.3 mmol/L (3.5-5.5); Sodium, Blood 138 mmol/L (136-145); Total Protein, Blood 5.3 g/dL (6.4-8.2)
--- NOTE | 2020-04-13 14:55 | NUR ---
Met pt in bed resting, she reports to be doing well encouraged pt., offered prayes and spiritual support.
--- NOTE | 2020-04-13 15:36 | NUR ---
Spiritual care visit conducted. Patient is sitting up in bed and alert. Patient tells me about her progress in decreased pain and discomfort and improved mental clarity but patient says she has a long way to go. Patient shares about personal issues and how these issues are affecting her today. We discuss her martin and family which are sources of strength to patient. I listen empathically, normalize patient's experience, and provide pastoral parliamentary counsel and prayer. Patient responds well and shows signs of catharsis and improved hope. I will continue to assist patient and family with the emotional/spiritual aspects of the medical conditions.
--- NOTE | 2020-04-13 17:09 | NUR ---
PT IS A/OX3, PLEASANT AND COOPERATIVE, PT IS WEAK ON HER FEET AND HAS LIMITED MOVENET IN HER UE, PT WAS MEDICATED FOR PAIN T/O THE DAY, THE PT WORKED WITH THE PHYSICAL AND OCCUPATIONAL THERAPIST TODAY AND TOLERATED FAIRLY, THE PT WAS UP IN THE CHAIR AT THE BEDSIDE FOR BREAKFAST AND FOR LUNCH, THE PT IS SOB WITH LITTLE EXCERTION, APPEARS TO BE BREATHING EASILY AT REST WITHOUT OXYGEN, A STEVE WAS ORDERED FOR THE PT AND WAS CONSULTED AND HAS SEEN THE PT, FAMILY WAS IN TO SEE THE PT, THE PT HAD A SMALL BM TODAY, CALL LIGHT IN REACH, WILL CONTINUE TO MONITOR AND ASSESS FOR CHANGES
--- NOTE | 2020-04-13 20:30 | NUR ---
ASSUMED CARE: THOMAS HAS SLIDE DOWN IN BED, APPEARS TO BE VERY UNCOMFORTABLE. OFFERED TO GET HELP TO MOVE HER UP IN BED. SHE REFUSED. OFFERED TO PUT PILLOWS AT LEAST BEHIND HER AND AGAIN SHE REFUSED. STATES SHE HURTS ALL OVER. JUST GOT PAIN MEDS NOT TO LONG AGO. OFFERED HER THE HEATING PAD AND AGAIN NO. LUNG SOUNDS CLEAR, HR SINUS, TELE IN PLACE. IV FLUIDS KVO, IV ANTIBOTIC HUNG. CATHETER PATENT AND DRAINING. BLE EDEMA +1 ELEVATED ON PILLOWS. DRESSING TO SHOULDER HAS MINIMAL DRAINAGE, INTACT. ADMINISTERED MEDS. ABLE TO STATE ORIENTATION QUESTIONS, SMILES AND IS IN GOOD MOOD. VS WNL. WILL CONTINUE TO MONITOR.
--- NOTE | 2020-04-13 23:19 | NUR ---
YANDEL REPORTS THAT THOMAS STATES THERE IS SOMEONE COMING OUT OF HER WHITE BOARD AND IS IN HER ROOM. SHE TURNED ON THE LIGHTS AND SHOWED HER THERE WAS NO ONE THERE. SHE SAID SHE CAN HEAR THEM. REASSURED HER THAT SHE IS SAFE AND NO ONE IS THERE.
--- NOTE | 2020-04-13 23:35 | NUR ---
HEMOTOLOGY CALLED REPORTING POSITIVE BLOOD CULTURES, SAME RESULTS PREVIOUS. NO CHANGE. WILL NOTE.
--- NOTE | 2020-04-13 23:55 | NUR ---
THOMAS WAS AWAKE BUT WAS NOT ACTING LIKE HERSELF. ASKED HER WHAT IS WRONG. SHE BEGAN TO TELL ME ABOUT THE OPENING UNDERNEATH THE WHITE BOARD AND ALL THE PEOPLE LOOKING AT HER. TRIED TO RE-ORIENT HER AND SHE GOT VERY UPSET AND ANGRY NOT UNDERSTANDING THAT THERE WAS NOTHING THERE BUT A WALL. EVEN ENCOURAGED HER TO TRY AND GET UP TO SEE FOR HERSELF BUT SHE REFUSED. REFUSED TO EVEN MOVE IN BED. WAS ABLE TO PUT THE HEAD OF HER BED DOWN AT LEAST. WILL MONITOR. CALL LIGHT IN REACH.
--- NOTE | 2020-04-14 05:45 | NUR ---
SHIFT SUMMARY; AOX3 AT START OF SHIFT BUT EVENTUALLY BECAME CONFUSED DURING THE NIGHT, HULLUCINATIONS OF PEOPLE IN THE ROOM, TALKING TO SELF, AUDITORY HULLUCINATIONS AND BEHAVIORAL CHANGES. WHEN TRYING TO REORIENT, SHE GOT IRRITATED AND ANGRY THINKING WE WERE LYING TO HER. SHE EVEN ATTEMPTED TO GET OUT OF BED FORGETTING SHE WAS IN THE HOSPITAL OR THAT SHE HAD A CATHETER. VS WERE WNL, AFEBRILE. BLOOD CULTURES + FOR GRAM + COCCI IN CLUSTERS. PAIN CONSISTED ALL OVER BODY NEEDING OXYCODONE EVERY 4 HOURS. REFUSED REPOSITIONING. NPO AFTER MIDNIGHT FOR DR. GUERRERO. GOOD CATHETER OUTPUT OF 1300. IV INTAKE 1823, PO INTAKE 960 THIS SHIFT. MILD SWELLING TO BLE. SLEPT OFF AND ON BUT NOT CONSISTENT. BED ALARM REMAINED ON, CALL LIGHT IN REACH.
[2020-04-14 05:46] LABS: Hematocrit 22.3 % (33.0-51.0); Hemoglobin 7.3 g/dL (11.5-16.0); Mean Corpuscular HGB 27.9 pg (26.0-34.0); Mean Corpuscular HGB Conc 32.7 g/dL (31.5-36.5); Mean Corpuscular Volume 85 fL (80-100); Mean Platelet Volume 9.5 fL (9.1-12.4); Platelet Count 682 K/mm3 (150-400); RDW Coefficient Variation 15.2 % (11.7-14.2); Red Blood Cell Count 2.62 M/mm3 (3.80-5.20); White Blood Cell Count 9.15 K/mm3 (4.00-11.30)
[2020-04-14 06:10] LABS: Anion Gap 7 mmol/L (6-16); Blood Urea Nitrogen 7 mg/dL (8-24); Bun/Creatinine Ratio 11.2 (12.0-20.0); CO2, Blood 26 mmol/L (21-32); Calcium, Blood 7.8 mg/dL (8.5-10.1); Chloride, Blood 104 mmol/L (98-108); Creatinine, Blood 0.63 mg/dL (0.40-1.00); Glomerular Filtration Rate >60 (60-); Glucose, Blood 101 mg/dL (70-99); Potassium, Blood 3.4 mmol/L (3.5-5.5); Sodium, Blood 137 mmol/L (136-145)
[2020-04-14 08:41] LABS: Percent Saturation 14.3 % (15.0-50.0)
--- NOTE | 2020-04-14 10:59 | NUR ---
Met pt sitting in a chair and talking with her nurse in the room who is attending to her needs, prayed for the pt.
--- NOTE | 2020-04-14 11:52 | NUR ---
PT TAKEN TO THE HEART CENTER VIA WHEELCHAIR ALERT ANXIUOS, APPEARED TO BE BREATHING EASILY
--- NOTE | 2020-04-14 13:47 | NUR ---
PT IS BACK FROM THE HC A/O APPEARS TO BE BREATHING EASILY, MEDICATED THE PT FOR PAIN, CALL LIGHT IN REACH, FAMILY AT THE BEDSIDE
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
--- NOTE | 2020-04-14 20:15 | NUR ---
ASSUMED CARE. THOMAS WAS SITTING UP IN THE RECLEINER AND APPARENTLY PULLED OUT HER IV WHICH WAS STILL INFUSING. SHE HAD BLOOD ALL OVER HER GOWN, CHAIR AND LAP. SISTER FOUND HER THAT WAY. SHE WAS CLEANED UP AND IV WAS STOPPED. RADIAL DRILL PRESS SET UP OPERATOR GOT HER BACK TO BED. ATTEMPTED TO START NEW IV AND WAS UNSUCCESSFUL. CALLED PROCESS IMPROVEMENT ENGINEERGIORGI GARCIA TO SEE START ONE. THOMAS IS ABLE TO ANSWER ALL ORIENTATION QUESTIONS BUT WITH HULLUCINATIONS BOTH AUDITORY AND VISUAL. WHEN MENTIONED SHE GETS FRUSTRATED AND THINKS THE STAFF IS CALLING HER CRAZY SO SHE TRYS TO HIDE IT. THE PERIODS OF CONFUSION COME AND GO BUT TEND TO GET ALOT WORSE AT NIGHT. MEDICATED FOR PAIN GENERALIZED ALL OVER BUT MOSTLY IN BACK. POOR APPETITE STILL DISPITE SISTER ENCOURAGING HER TO EAT. CATHETER STILL PATENT AND DRAINING. SWELLING NOTED ON LEFT MEDIAL SIDE OF ARM AROUND THE ELBOW AREA LIKE THE IV INFILTRATED BUT WAS NOT SWOLLEN AT IV INSERTION SITE. CONCERN FOR THAT JOINT HAVING PROBLEMS LIKE THE SHOULDER. WILL MONITOR, CURRENTLY NO WARMTH OR REDNESS NOTED. BED ALARM IS ON. RADHA RAND IN THE ROOM.
--- NOTE | 2020-04-15 05:22 | NUR ---
SHIFT SUMMARY: THOMAS ALERT AND ORIENTED WITH PERIODS OF CONFUSION AND HULLUCINATIONS, TALKING TO SELF IN THE ROOM. REPORTS PAIN GENERALIZED ALL OVER BUT MOSTLY HER NECK, ARMS, ELBOWS AND LOWER BACK. BILATERAL ELBOWS ARE VERY SWOLLEN, TENDER TO TOUCH BUT NO REDNESS. SHE REPORTS THAT HER JOINTS STARTED HURTING WHEN SHE STARTED TO GET ILL. MEDICATED WITH OXYCODONE PRN. SHE DOES NOT LIKE TO BE MOVED DUE TO THE PAIN. IV FLUIDS AND ANTIBOTICS INFUSED WITH NO ISSUES. NEW IV WAS STARTED IN HER LEFT AC. POOR APPETITE. GOOD HYDRATION. CONCERNED ABOUT THE EDEMA IN HER JOINTS AND THE PAIN IT IS CAUSING HER. WILL PASS ONTO DAY SHIFT. CALL LIGHT REMAINED IN REACH, BED ALARM ON.
[2020-04-15 06:09] LABS: BASOPHILS ABSOLUTE AUTO 0.04 K/mm3 (0.00-0.23); BASOPHILS PERCENT AUTO 0 % (0-2); EOSINOPHILS ABSOLUTE AUTO 0.08 K/mm3 (0.00-0.68); EOSINOPHILS PERCENT AUTO 1 % (0-6); Hematocrit 23.6 % (33.0-51.0); Hemoglobin 7.3 g/dL (11.5-16.0); IMMATURE GRAN ABSOLUTE AUTO 0.25 K/mm3 (0.00-0.10); IMMATURE GRAN PERCENT AUTO 3 % (0-1); LYMPHOCYTES ABSOLUTE AUTO 1.06 K/mm3 (0.84-5.20); LYMPHOCYTES PERCENT AUTO 11 % (21-46); MONOCYTES ABSOLUTE AUTO 0.63 K/mm3 (0.16-1.47); MONOCYTES PERCENT AUTO 7 % (4-13); Mean Corpuscular HGB 27.4 pg (26.0-34.0); Mean Corpuscular HGB Conc 30.9 g/dL (31.5-36.5); Mean Corpuscular Volume 89 fL (80-100); Mean Platelet Volume 9.2 fL (9.1-12.4); NEUTROPHILS ABSOLUTE AUTO 7.66 K/mm3 (1.96-9.15); NEUTROPHILS PERCENT AUTO 79 % (41-73); Platelet Count 836 K/mm3 (150-400); RDW Coefficient Variation 15.5 % (11.7-14.2); RDW Standard Deviation 48.6 fL (35.1-46.3); Red Blood Cell Count 2.66 M/mm3 (3.80-5.20); White Blood Cell Count 9.72 K/mm3 (4.00-11.30)
[2020-04-15 06:46] LABS: Albumin, Blood 1.4 g/dL (3.4-5.0); Anion Gap 6 mmol/L (6-16); Blood Urea Nitrogen 6 mg/dL (8-24); Bun/Creatinine Ratio 10.5 (12.0-20.0); CO2, Blood 26 mmol/L (21-32); Calcium, Blood 7.9 mg/dL (8.5-10.1); Chloride, Blood 103 mmol/L (98-108); Creatinine, Blood 0.57 mg/dL (0.40-1.00); Glomerular Filtration Rate >60 (60-); Glucose, Blood 90 mg/dL (70-99); Phosphorus, Blood 3.9 mg/dL (2.5-4.9); Potassium, Blood 3.5 mmol/L (3.5-5.5); Sodium, Blood 135 mmol/L (136-145)
--- NOTE | 2020-04-15 13:44 | NUR ---
Pt. is sitting in a chair and her therapist in the room attending to her needs , offered prayers and spiritual support.
--- NOTE | 2020-04-15 19:00 | NUR ---
SHIFT SUMMARY: NO ACUTE CHANGES TO REPORT THIS SHIFT. PT ALERT; CONFUSED R/T TBI; COOPERATIVE WITH CARE. MEDICCATED FOR BACK & NECK PAIN PER EMAR; LIDOCAINE TOP IN PLACE TO L LOWER BACK. IBRAHIM IN PLACE; PATENT & DRAINING. TELE IN PLACE; SR c 1DEG BLOCK @ 92. BLOOD CULTURES POSITIVE FOR STAPH; OXACILLIN Q4; INFECTIOUS DISEASE FOLLOWING. REPORT GIVEN TO ONCOMING RN.
--- NOTE | 2020-04-15 20:30 | NUR ---
ASSUMED CARE: THOMAS IS DOING MUCH BETTER WITH HER MEMORY. SHE IS ABLE TO ANSWER ALL ORIENTATION QUESITONS. SHE IS IN A MUCH BETTER MOOD. HER PAIN HAS BEEN AVERAGING A 5 AT THE HIGHEST. SHE IS MOVING AROUND MUCH BETTER. HER APPETITE IS STILL VERY POOR. ENCOURAGE HER TO EAT MORE. IV FLUIDS RUNNING AT KVO FOR EVERY 4HR ANTIBOTICS. CATHETER STILL PATIENT. ASSISTED TO BEDSIDE COMMODE 1 ASSIST. LARGE FORMED BROWN BM NOTED. ASSISTED BACK TO BED REPOSITIONED TO HELP SUPPORT HER NECK. GAVE PM MEDS AND PAIN PILL. STRAIGHTENED UP THE ROOM AND CLEANED IT FOR HER. GAVE HER SOME MAGAZINES AND BIBLE TO HAVE SOMETHING TO DO. CALL LIGHT IS IN REACH.
--- NOTE | 2020-04-15 22:22 | NUR ---
SPOKE TO TOÑA RONQUILLO REGARDING SLEEPING AID AND DC OF FENTANYL THE PATIENT DOES NOT USE THIS MEDICATIONS. ORDER RECEIVED. WENT TO ROOM THE PATIENT WAS ASLEEP.
--- NOTE | 2020-04-16 05:22 | NUR ---
SHIFT SUMMARY: MENTAL STATUS IMPROVED THROUGHOUT THE NIGHT- EVIDENCE BY PT REMEMBERING ORIENTATION, NO HULLUCINATIONS OR TALKING TO SELF. EDEMA IS CONSISTENT IN THE BILATERAL ELBOWS AND BLE. PAIN CONSTANT IN LOWER BACK AND NECK, NEEDING OXYCODONE Q4 HOURS. PAIN IS 3-5 ON AVERAGE. ABLE TO TURN SELF AND USE BED CONTROLS FOR REPOSITIONING 50% OF TIME. IV FLUIDS CONTINUE ON KVO. MD CALLED FOR SLEEP AID. MELATONIN WAS GIVEN. HELD RESTROL TONIGHT. WHICH MAY BEEN THE IMPROVEMENT IN MENTATION. LARGE BM NOTED. ROOM STRAIGHTEN UP AND CLEANED. PT GIVEN MAGAZINES AND BIBLE TO KEEP COMPANY. DRESSING REMAINED INTACT. CALL LIGHT IN REACH, BED ALARM ON. WILL REPORT TO DAY SHIFT.
--- NOTE | 2020-04-16 14:19 | NUR ---
ORDER CLARIFICATION DR. MAYO CALLED TO CLARIFY NM SCAN ORDER. DR. MAYO CONFIRMED THAT HE WANTED THE WHITE CELL TEST DONE. PT TO HAVE SCAN TOMORROW.
--- NOTE | 2020-04-16 16:32 | NUR ---
SHIFT SUMMARY DR. MAYO ORDERED FOR NV WHITE CELL SCAN TO BE COMPLETED. WILL OCCUR TOMORROW ACCORDING TO NUC MED. PT INTERMIDETELY CONFUSED. VERY FORTGETFUL. RESPONDS TO REORIENTATION WELL. NO CHANGES IN SWELLING T/O BODY SINCE THIS AM. PT VOIDING WELL. BLADDER TRAINING IN PROGRESS. PT UP TO CHAIR FOR MOST THE DAY. WORKED WITH PT/OT THIS SHIFT. NO OTHER CHANGES IN ASSESSMENT AT THIS TIME. DRESSING TO L SHOULDER C/D/I. WILL CONTINUE TO MONITOR UNTIL TURNOVER IS COMPLETE. VS REVIEWED.
--- NOTE | 2020-04-16 16:45 | NUR ---
SHIFT SUMMARY PT REQUIRING 2L O2 STILL TO MAINTAIN O2 SATS. TELEMETRY IN PLACE AND RUNNING NSR IN THE 80S PER MANAGEMENT ASSISTANT. PT SITTING UP IN BED, SNACKING ON WATERMELON. DENIES CP OR SOB AT THIS TIME. SLIGHT EDEMA TO LEGS. OTHERWISE NORMAL ASSESSMENT. PT UP IN ROOM INDEPENDENTLY. CALL LIGHT AT BEDSIDE. VS REVIEWED. WILL CONTNUE TO MONITOR UNTIL TURNOVER IS COMPLETE.
[2020-04-17 05:43] LABS: BASOPHILS ABSOLUTE AUTO 0.02 K/mm3 (0.00-0.23); BASOPHILS PERCENT AUTO 0 % (0-2); EOSINOPHILS ABSOLUTE AUTO 0.08 K/mm3 (0.00-0.68); EOSINOPHILS PERCENT AUTO 1 % (0-6); Hematocrit 23.8 % (33.0-51.0); Hemoglobin 7.2 g/dL (11.5-16.0); IMMATURE GRAN ABSOLUTE AUTO 0.22 K/mm3 (0.00-0.10); IMMATURE GRAN PERCENT AUTO 3 % (0-1); LYMPHOCYTES ABSOLUTE AUTO 1.04 K/mm3 (0.84-5.20); LYMPHOCYTES PERCENT AUTO 15 % (21-46); MONOCYTES ABSOLUTE AUTO 0.54 K/mm3 (0.16-1.47); MONOCYTES PERCENT AUTO 8 % (4-13); Mean Corpuscular HGB Conc 30.3 g/dL (31.5-36.5); Mean Corpuscular Volume 89 fL (80-100); Mean Platelet Volume 9.6 fL (9.1-12.4); NEUTROPHILS ABSOLUTE AUTO 5.06 K/mm3 (1.96-9.15); NEUTROPHILS PERCENT AUTO 73 % (41-73); Platelet Count 846 K/mm3 (150-400); RDW Standard Deviation 49.5 fL (35.1-46.3); Red Blood Cell Count 2.67 M/mm3 (3.80-5.20); White Blood Cell Count 6.96 K/mm3 (4.00-11.30)
[2020-04-17 06:17] LABS: Alanine Aminotransfer (ALT/SGP 36 U/L (12-78); Albumin, Blood 1.4 g/dL (3.4-5.0); Albumin/Globulin Ratio 0.3 (0.8-1.8); Alk Phos 193 U/L (50-136); Anion Gap 7 mmol/L (6-16); Aspartate Aminotrans (AST/SGOT 25 U/L (12-37); Bilirubin, Total 0.7 mg/dL (0.1-1.0); Blood Urea Nitrogen 5 mg/dL (8-24); Bun/Creatinine Ratio 9.1 (12.0-20.0); CO2, Blood 25 mmol/L (21-32); Calcium, Blood 7.8 mg/dL (8.5-10.1); Chloride, Blood 105 mmol/L (98-108); Creatinine, Blood 0.55 mg/dL (0.40-1.00); Globulin, Blood 4.3 g/dL (2.2-4.0); Glomerular Filtration Rate >60 (60-); Glucose, Blood 91 mg/dL (70-99); Potassium, Blood 3.2 mmol/L (3.5-5.5); Sodium, Blood 137 mmol/L (136-145); Total Protein, Blood 5.7 g/dL (6.4-8.2)
--- NOTE | 2020-04-17 06:30 | NUR ---
SHIFT SUMMARY LYING IN SEMI FOWLERS WITH EYES CLOSED. MEDICATED FOR PAIN PER MD ORDERS. ATTEMPTED TO AMBULATE TO COMMODE WITH ASSISTACE, BUT UNABLE TO TOLERATE. ABLE TO GET BACK INTO BED WITH MINIMAL ASSISTANCE, AND DIRECTION AND GUIDANCE. DENIES PAIN, DISCOMFORT, OR FURTHER NEEDS AT THIS TIME. SAFETY MEASURES IN PLACE. WILL CONTINUE TO MONITOR AND GIVE HAND OFF TO ONCOMING SHIFT USING SBAR DURING BEDSIDE REPORT.
--- NOTE | 2020-04-17 09:38 | NUR ---
DR. GANDHI ORDERED TO GIVE 1MG PO ATIVAN PRIOR TO PT SCAN FOR NUC MED TO HELP WITH ANXIETY
--- NOTE | 2020-04-17 13:20 | NUR ---
Spiritual care visit conducted. Patient is sitting on a chair and alert. Patient tells me about the procedure that her doctor has initiated, about the difficult morning she has had with stiffness and soreness and about the plan to have her go to [facility]. Patient also talks about her family visits and phone calls and how much they mean to her. Patient weaves her martin into the discussion at every opportunity and emphasizes the importance of her martin to her sanity. I normalize patient's worries and fears, and provide spiritual career and guidance counselor and prayer. Patient responds well and shows signs of an elevated mood. I will continue to remain available to patient and family.
--- NOTE | 2020-04-17 18:40 | NUR ---
SHIFT SUMMARY PT HAD NUC MED WHITE CELL SCAN COMPLETED THIS SHIFT. FAMILY AT BEDSIDE. PT UP TO CHAIR MOST THE DAY. CONT/INC VOIDS T/O SHIFT. PT RECIEVED ONE TIME ATIVAN 2MG DOSE PRIOR TO SCAN. PT ALERT, BUT MORE DISORIENTED FROM THIS. PT STATES SHE FEELS "LOOPY" NO OTHER ACUTE CHANGES IN ASSESSMENT AT THIS TIME. VS REVIEWED. WILL CONTINUE TO MONITOR UNTIL TURNOVER IS COMPLETE.
--- NOTE | 2020-04-18 04:11 | NUR ---
SUMMARY PT HAS SOME NOTED HALLUCINATIONS THIS SHIFT. PT PAIN HAS BEEN MANAGED WELL. PT HAS BEEN VOIDING VIA BSC. PT HAS SLEPT SOME AND IS CURRENTLY AWAKE. CALL LIGHT IN REACH AND BED ALARM ON.
[2020-04-18 08:14] LABS: BASOPHILS ABSOLUTE AUTO 0.05 K/mm3 (0.00-0.23); BASOPHILS PERCENT AUTO 1 % (0-2); EOSINOPHILS ABSOLUTE AUTO 0.08 K/mm3 (0.00-0.68); EOSINOPHILS PERCENT AUTO 1 % (0-6); Hematocrit 25.5 % (33.0-51.0); IMMATURE GRAN ABSOLUTE AUTO 0.24 K/mm3 (0.00-0.10); IMMATURE GRAN PERCENT AUTO 3 % (0-1); LYMPHOCYTES ABSOLUTE AUTO 1.23 K/mm3 (0.84-5.20); LYMPHOCYTES PERCENT AUTO 15 % (21-46); MONOCYTES ABSOLUTE AUTO 0.71 K/mm3 (0.16-1.47); MONOCYTES PERCENT AUTO 9 % (4-13); Mean Corpuscular HGB 27.6 pg (26.0-34.0); Mean Corpuscular HGB Conc 31.4 g/dL (31.5-36.5); Mean Corpuscular Volume 88 fL (80-100); Mean Platelet Volume 8.5 fL (9.1-12.4); NEUTROPHILS ABSOLUTE AUTO 6.04 K/mm3 (1.96-9.15); NEUTROPHILS PERCENT AUTO 72 % (41-73); White Blood Cell Count 8.35 K/mm3 (4.00-11.30)
[2020-04-18 08:25] LABS: Platelet Count 1006 K/mm3 (150-400)
[2020-04-18 08:29] LABS: Anion Gap 7 mmol/L (6-16); Blood Urea Nitrogen 6 mg/dL (8-24); Bun/Creatinine Ratio 13.4 (12.0-20.0); CO2, Blood 25 mmol/L (21-32); Calcium, Blood 8.1 mg/dL (8.5-10.1); Chloride, Blood 104 mmol/L (98-108); Creatinine, Blood 0.45 mg/dL (0.40-1.00); Glomerular Filtration Rate >60 (60-); Glucose, Blood 87 mg/dL (70-99); Magnesium, Blood 2.2 mg/dL (1.6-2.4); Potassium, Blood 3.6 mmol/L (3.5-5.5); Sodium, Blood 136 mmol/L (136-145)
--- NOTE | 2020-04-18 09:33 | NUR ---
MORNING SUMMARY PT HANDOFF TO GIORGI JOY, @0850. REPORT AT BEDSIDE, RM 353. HIGH FALL RISK DUE TO IMPULSIVENESS. ALERT AND ORIENTED BUT FORGETFUL. DTR NOTIFIED OF ROOM CHANGE. MD NOTIFIED OF CRITICAL PLT COUNT 1006. PT ORIENTED TO ROOM, CALL LIGHT IN REACH, BED ALARM ON.
--- NOTE | 2020-04-18 18:09 | NUR ---
SUMMARY PT WAS TRANSFERED TO [facility]U THIS AM D/T IMPULSIVE BEHAVIOR, GETTING UP W/O ASSIST, FALL RISK. SHE HAS USED CALL SYSTEM APPROPRIATELY SINCE ARRIVING TO RM 353. SHE IS A/O X3, PLEASANT AFFECT, HX TBI. SHE HAS BUE TREMOR THAT SHE STATE STARTED RECENTLY w CURRENT ILLNESS. DX BACTEREMIA, QUESTIONABLE SOURCE/REPORT NUC MED WBC SCAN YESTERDAY WAS NEGATIVE. SHE HAD I&D R SHOULDER ABCESS. IV ANTIBX CONTINUE. WBC WNL, AFEBRILE. ESR ELEVATED >140. PLT CH 1006. SHE STATE WEAKNESS/FATIGUE. STATE NECK & BACK PAIN. HAVE GIVEN OXYCODONE & TYLENOL FOR RELIEF. R SHOULDER SURG SITE w SUTURES IN PLACE, WOUND CARE/DRSG CHANGE PROVIDED. SHE HAS BEEN UP IN CHAIR, UP TO BR w 1 ASSIST, CONT/INCONT. VSS.
--- NOTE | 2020-04-18 19:45 | NUR ---
pt moved to back mcknight for confussion. Attemtpted to see today will follow up with family on advance care planning.
[2020-04-19 05:07] LABS: BASOPHILS ABSOLUTE AUTO 0.05 K/mm3 (0.00-0.23); BASOPHILS PERCENT AUTO 1 % (0-2); EOSINOPHILS ABSOLUTE AUTO 0.08 K/mm3 (0.00-0.68); EOSINOPHILS PERCENT AUTO 1 % (0-6); Hematocrit 24.9 % (33.0-51.0); Hemoglobin 7.6 g/dL (11.5-16.0); IMMATURE GRAN ABSOLUTE AUTO 0.27 K/mm3 (0.00-0.10); IMMATURE GRAN PERCENT AUTO 3 % (0-1); LYMPHOCYTES ABSOLUTE AUTO 1.34 K/mm3 (0.84-5.20); LYMPHOCYTES PERCENT AUTO 17 % (21-46); MONOCYTES PERCENT AUTO 9 % (4-13); Mean Corpuscular HGB 27.8 pg (26.0-34.0); Mean Corpuscular HGB Conc 30.5 g/dL (31.5-36.5); Mean Corpuscular Volume 91 fL (80-100); Mean Platelet Volume 8.4 fL (9.1-12.4); NEUTROPHILS PERCENT AUTO 69 % (41-73); Platelet Count 906 K/mm3 (150-400); RDW Coefficient Variation 16.4 % (11.7-14.2); RDW Standard Deviation 52.6 fL (35.1-46.3); Red Blood Cell Count 2.73 M/mm3 (3.80-5.20); White Blood Cell Count 7.94 K/mm3 (4.00-11.30)
--- NOTE | 2020-04-19 05:08 | NUR ---
SHIFT SUMMARY PT CONTINUES TO COMPLAIN OF R SHOULDER PAIN AND BACK PAIN. MEDICATED FOR PAIN PER ORDERS. Q4HR ABX CONTINUED. PT A/OX4, PLESANT WITH CARE. PT SLEPT IN RECLINER FOR MOST OF THE NIGHT AND REFUSED THE BED WHEN ASKED. EDEMA TO BLE ELEVATES EXTREMITIES WHILE IN CHAIR. HER ASSESSMENT IS UNCHANGED OVERNIGHT. VITALS STABLE. BED IN LOWEST POSITION, CALL LIGHT WITHIN REACH. WILL CONTINUE TO MONITOR AND REPORT TO ONCOMING RN.
--- NOTE | 2020-04-19 15:56 | NUR ---
SUMMARY PT IS A/O X3, PLEASANT AFFECT. SHE STATE FEELING SOMEWHAT BETTER TODAY THAN PREVIOUS DAY HOWEVER STATE CONTINUING NECK-BACK PAIN, HAVE GIVEN PRN OXYCODONE & TYLENOL FOR RELIEF. DRESS FINISHER GAVE HER SHOWER TODAY, ALLOWED PT TO SIT UNDER HOT WATER,SHE STATE GAVE HER GOOD BACK PAIN RELIEF. WBC WNL, SHE HAS BEEN AFEBRILE T/O DAY. IV ANTIBX CONTINUE. VSS.
--- NOTE | 2020-04-20 06:20 | NUR ---
SHIFT SUMMARY PT HAS HAD OFF AND ON PAIN T/O THE NIGHT. MEDICATED PER EMAR WITH EFFECT. PT HAS ALTERNATED BETWEEN THE BED AND THE CHAIR TO HELP ALLEVIATE HER BACK/NECK AND SHOULDER PAIN. PT AMBULATES WELL WITH SBA. VITALS ARE STABLE. Q4HR ANTIBITOICS CONTINUED. PT IS A/OX4, PLESANT. PLAN IS FOR POSS DC TODAY. NO ACUTE CHANGES OVERNIGHT. BED IN LOWEST POSITION, CALL LIGHT WITHIN REACH.
[2020-04-20 11:33] LABS: BASOPHILS ABSOLUTE AUTO 0.07 K/mm3 (0.00-0.23); BASOPHILS PERCENT AUTO 1 % (0-2); EOSINOPHILS ABSOLUTE AUTO 0.08 K/mm3 (0.00-0.68); EOSINOPHILS PERCENT AUTO 1 % (0-6); Hematocrit 24.5 % (33.0-51.0); Hemoglobin 7.4 g/dL (11.5-16.0); IMMATURE GRAN ABSOLUTE AUTO 0.22 K/mm3 (0.00-0.10); IMMATURE GRAN PERCENT AUTO 2 % (0-1); LYMPHOCYTES ABSOLUTE AUTO 1.28 K/mm3 (0.84-5.20); LYMPHOCYTES PERCENT AUTO 13 % (21-46); MONOCYTES ABSOLUTE AUTO 0.58 K/mm3 (0.16-1.47); MONOCYTES PERCENT AUTO 6 % (4-13); Mean Corpuscular HGB 27.5 pg (26.0-34.0); Mean Corpuscular HGB Conc 30.2 g/dL (31.5-36.5); Mean Corpuscular Volume 91 fL (80-100); Mean Platelet Volume 8.3 fL (9.1-12.4); NEUTROPHILS ABSOLUTE AUTO 7.75 K/mm3 (1.96-9.15); NEUTROPHILS PERCENT AUTO 78 % (41-73); Platelet Count 881 K/mm3 (150-400); Red Blood Cell Count 2.69 M/mm3 (3.80-5.20); White Blood Cell Count 9.98 K/mm3 (4.00-11.30)
--- NOTE | 2020-04-20 13:10 | NUR ---
Spiritual care visit conducted. Patient tells me about her improved condition but expresses that she a long ways to go. Patient states that there are many people pulling for her but it is her martin that gets her through. Patient talks about how difficult it is to wait on test results because it still feels, becuse the source of the infection is unclear, that she is hitting at the wind. I provide therapeutic listening, anxiety containment, pastoral student counselor and prayer. Patient responds well and shows signs of reduced stress. I will continue to remain available to patient and family.
--- NOTE | 2020-04-20 18:03 | NUR ---
SHIFT SUMMARY PT IS A&O. PT HAS BEEN IN PAIN MOST OF THE SHIFT. PRN MEDICATION HAS BEEN GIVEN TO HELP CONTROL PAIN LEVEL. ADDITIONAL NON PHARMILOGICAL PAIN MANAGEMENT HAS BEEN DONE TO HELP WHEN MEDICATION IS NOT AVAILABLE. PT USES DEEP BREATHING AND THE MEDITATION CHANNEL TO HAS HELPED. PHYSICAL THERPHY HELPED PT WALK THE SHEPHERD, PT ENJOYED IT. PT DOES FORGET LIMITATIONS AT TIMES AND NEED TO BE REMINDED TO USE THE CALL LIGHT. MRI SCHEDULED FOR TOMORROW. PT EATING DINNER IN HER CHAIR CURENTLY. PAIN LEVEL AT 1. NO COMPLAINTS OF N/V DURING SHIFT. 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
--- NOTE | 2020-04-20 19:50 | NUR ---
ASSUMED CARE. THOMAS REMEMBERED ME FROM PREVIOUS WEEKS OF TAKING CARE OF HER. AOX3, FORGETFUL AT TIMES. LUNG SOUNDS ARE CLEAR. HR SINUS. NO CHEST PAIN, SOB, OR LIGHTHEADNESS. STATES APPETITE HAS IMPROVED ALOT SINCE THRUSH HAS GOTTEN BETTER IN MOUTH. SKIN WITH REDNESS IN GROIN AREA. BARRIER CREAM PRN. ABLE TO GET UP MOSTLY ON HER OWN. USES WALKER TO GET TO THE BATHROOM. SHE IS STURDY ON HER FEET. PAIN IS 7/10 TO SOON TO GIVE MEDS. OFFERED HEATING PAD, STATES SHE WILL BE OK. EDEMA NOTED TO BLE, WHEN GETTING BACK TO BED, SHE ELEVATES ON PILLOWS. IV FLUIDS INFUSING. CALL LIGHT IN REACH.
--- NOTE | 2020-04-21 06:29 | NUR ---
SHIFT SUMMARY: THOMAS HAD A GOOD NIGHT DISPITE HER BEING UP AND DOWN. SHE IS DOING BETTER, ABLE TO AMBULATE TO THE BATHROOM WITH NO ASSISTANCE OTHER THEN IV. SHE IS AOX3 THROUGHOUT THE NIGHT, NO CONFUSION. SHE USED HER CALL LIGHT EVERY TIME. PAIN IS MANAGED WITH OXYCODONE, AT TIMES SHE HAS INCREASED IN PAIN WHERE WE HAVE HAD TO USE TYLENOL IN BETWEEN DOSAGES. THIS PAIN TENDS TO START WITH IN THE 3 HOURS AFTER HER DOSE. SHE IS UNABLE TO SLEEP DUE TO THIS. IV CONTINUED TO INFUSE, ANTIBOTICS ADMINISTERED. VS WNL, AFEBRILE. NO OTHER CHANGES TO NOTE THIS SHIFT. WILL REPORT TO DAY SHIFT. CALL LIGHT IN REACH.
--- NOTE | 2020-04-21 11:01 | NUR ---
Met pt. lying in bed and talking with her visitore in the room , pt. reports doing much better encouraged pt. and offered prayers
[2020-04-21 15:54] LABS: Body Fluid Crystals NEG (NEGATIVE)
[2020-04-21 16:11] LABS: RBC Count, Synovial Fluid 20000 /mm3 (0-0)
[2020-04-21 16:32] LABS: WBC Count, Synovial Fluid 56060 /mm3 (0-180)
[2020-04-21 16:41] LABS: Lymphs, Synovial Fluid 3 % (0-15); Monocytes/Macrophages, Synovia 1 % (0-65); Neutrophils, Synovial Fluid 96 % (0-24)
[2020-04-21 16:44] LABS: Appearance, Synovial Fluid Turbid (Clear); Color, Synovial Fluid Yellow (None-P Yel)
--- NOTE | 2020-04-21 17:31 | NUR ---
PT HAS BEEN AOX4 AND COOPERATIVE OF CARE ALL DAY. PT TREATED FOR NECK AND BACK PAIN PER EMAR. DR QUINTERO ORDERED MRI TO BE DONE. UPON COMPLETION IT WAS FOUND PT HAD MULTIPLE ABCESSES IN HER SPINE AND PT NEEDED AIR FLIGHTED TO [facility]. NECK [facility] WAS APPLIED AND REPORT WAS CALLED AT 1635 TO RECIEVING GIORGI LUNDBERG. PT WAS PREPPED AND QUICKLY ORGANIZED TO FLY OUT. CHARGE TO NOTIIFY FAMILY OF TRANSPORT. PERSONAL BELONGINGS WENT WITH PT. PT STOOD FROM CHAIR TO [facility] SHE HAS BEEN AMBULATING ALL DAY. NO DISTRESS NOTED. IV ANTIBOTIC DUE AT 1600 SENT WITH PT TO BE GIVEN IN FLIGHT.
== END 2020-04-21 16:58 | disposition short-term general hospital (02) | DRG 853 ==
LOC: ER 12:00 → MEDS 16:10
PROVIDERS: Emergency Medicine; Hospitalist; Internal Medicine; Internal Medicine Infectious Disease; Nurse Practitioner Acute Care; Orthopaedic Surgery; ADMIT Internal Medicine
PROC: 0RBJ0ZZ Excision of Right Shoulder Joint, Open Approach (ICD-10-PCS; principal; 2020-04-08 12:15)
DX: A41.01 Sepsis due to Methicillin susceptible Staphylococcus aureus (principal); G92 Toxic encephalopathy; G06.1 Intraspinal abscess and granuloma; N39.0 Urinary tract infection, site not specified; M00.811 Arthritis due to other bacteria, right shoulder; L02.413 Cutaneous abscess of right upper limb; I76 Septic arterial embolism; B96.20 Unspecified Escherichia coli [E. coli] as the cause of diseases classified elsewhere; E87.6 Hypokalemia; R65.20 Severe sepsis without septic shock; K21.9 Gastro-esophageal reflux disease without esophagitis; R74.0 Nonspecific elevation of levels of transaminase and lactic acid dehydrogenase [LDH]; R79.89 Other specified abnormal findings of blood chemistry; Z87.820 Personal history of traumatic brain injury; F32.9 Major depressive disorder, single episode, unspecified; F17.210 Nicotine dependence, cigarettes, uncomplicated
CPT/HCPCS: 10030; 20610; 36415; 70450; 71045; 72156; 72158; 73030; 73201; 78802; 80048; 80053; 80069; 80074; 80202; 81001; 81003; 82140; 82607; 82728; 82746; 83540; 83550; 83605; 83735; 84295; 85025; 85027; 85610; 85651; 86140; 87040; 87070; 87075; 87077; 87086; 87147; 87186; 87205; 89051; 89060; 93306; 93312; 93325; 96361-59; 96365-59; 96366-59; 96367-59; 96375-59; 97110; 97112; 97116; 97162; 97166; 97530; 97535; 99152; 99285-25; A9270; A9569; A9577; G0480; J0295; J1100; J1170; J1650; J2060; J2250; J2310; J2405; J2543; J2700; J2704; J3010; J3370; J7030; J7040; J7050; J7070; J7120; Q9967; U0002

== ENCOUNTER → 2020-05-12 | Outpatient (CLI) | payer MEDICARE, OTHER ==
[~2020-05-12] MED LIST changes: +BUPROPION XL150 M1 PO; +CYCL10; +Cipro500 MG PO; +DULOXETINE HCL60 M1 PO; +IBUP600
[2020-05-12 19:23] LABS: BASOPHILS ABSOLUTE AUTO 0.04 K/mm3 (0.00-0.23); BASOPHILS PERCENT AUTO 1 % (0-2); EOSINOPHILS ABSOLUTE AUTO 0.13 K/mm3 (0.00-0.68); EOSINOPHILS PERCENT AUTO 2 % (0-6); Hematocrit 31.2 % (33.0-51.0); Hemoglobin 9.5 g/dL (11.5-16.0); IMMATURE GRAN ABSOLUTE AUTO 0.04 K/mm3 (0.00-0.10); IMMATURE GRAN PERCENT AUTO 1 % (0-1); LYMPHOCYTES ABSOLUTE AUTO 2.29 K/mm3 (0.84-5.20); LYMPHOCYTES PERCENT AUTO 38 % (21-46); MONOCYTES ABSOLUTE AUTO 0.68 K/mm3 (0.16-1.47); MONOCYTES PERCENT AUTO 11 % (4-13); Mean Corpuscular HGB 27.5 pg (26.0-34.0); Mean Corpuscular HGB Conc 30.4 g/dL (31.5-36.5); Mean Corpuscular Volume 90 fL (80-100); Mean Platelet Volume 8.7 fL (9.1-12.4); NEUTROPHILS ABSOLUTE AUTO 2.82 K/mm3 (1.96-9.15); NEUTROPHILS PERCENT AUTO 47 % (41-73); Platelet Count 489 K/mm3 (150-400); RDW Coefficient Variation 16.8 % (11.7-14.2); RDW Standard Deviation 55.8 fL (35.1-46.3); Red Blood Cell Count 3.45 M/mm3 (3.80-5.20)
[2020-05-12 20:40] LABS: Albumin, Blood 2.2 g/dL (3.4-5.0); Albumin/Globulin Ratio 0.4 (0.8-1.8); Alk Phos 132 U/L (50-136); Anion Gap 6 mmol/L (6-16); Aspartate Aminotrans (AST/SGOT 14 U/L (12-37); Bilirubin, Total 0.4 mg/dL (0.1-1.0); Blood Urea Nitrogen 10 mg/dL (8-24); Bun/Creatinine Ratio 26.5 (12.0-20.0); CO2, Blood 30 mmol/L (21-32); Calcium, Blood 9.4 mg/dL (8.5-10.1); Chloride, Blood 103 mmol/L (98-108); Creatinine, Blood 0.38 mg/dL (0.40-1.00); Glomerular Filtration Rate >60 (60-); Glucose, Blood 82 mg/dL (70-99); Potassium, Blood 3.8 mmol/L (3.5-5.5); Sodium, Blood 139 mmol/L (136-145); Total Protein, Blood 7.2 g/dL (6.4-8.2)
[2020-05-12 21:05] LABS: Alanine Aminotransfer (ALT/SGP 6 U/L (12-78)
== END | disposition home or self-care (01) ==
LOC: LAB 18:05 → LAB SHORT 18:05
PROVIDERS: Internal Medicine Infectious Disease
DX: R78.81 Bacteremia (principal)
CPT/HCPCS: 80053; 85025; 85651; 86140

== ENCOUNTER → 2020-05-19 | Outpatient (CLI) | payer MEDICARE, OTHER ==
[2020-05-19 14:45] LABS: BASOPHILS ABSOLUTE AUTO 0.04 K/mm3 (0.00-0.23); BASOPHILS PERCENT AUTO 1 % (0-2); EOSINOPHILS ABSOLUTE AUTO 0.16 K/mm3 (0.00-0.68); EOSINOPHILS PERCENT AUTO 3 % (0-6); Hematocrit 33.2 % (33.0-51.0); IMMATURE GRAN ABSOLUTE AUTO 0.03 K/mm3 (0.00-0.10); IMMATURE GRAN PERCENT AUTO 1 % (0-1); LYMPHOCYTES ABSOLUTE AUTO 1.67 K/mm3 (0.84-5.20); LYMPHOCYTES PERCENT AUTO 29 % (21-46); MONOCYTES ABSOLUTE AUTO 0.55 K/mm3 (0.16-1.47); MONOCYTES PERCENT AUTO 10 % (4-13); Mean Corpuscular HGB 27.1 pg (26.0-34.0); Mean Corpuscular HGB Conc 30.1 g/dL (31.5-36.5); Mean Corpuscular Volume 90 fL (80-100); Mean Platelet Volume 9.1 fL (9.1-12.4); NEUTROPHILS ABSOLUTE AUTO 3.33 K/mm3 (1.96-9.15); NEUTROPHILS PERCENT AUTO 58 % (41-73); Platelet Count 400 K/mm3 (150-400); RDW Coefficient Variation 15.4 % (11.7-14.2); Red Blood Cell Count 3.69 M/mm3 (3.80-5.20); White Blood Cell Count 5.78 K/mm3 (4.00-11.30)
[2020-05-19 15:07] LABS: Alanine Aminotransfer (ALT/SGP 7 U/L (12-78); Albumin, Blood 2.3 g/dL (3.4-5.0); Albumin/Globulin Ratio 0.5 (0.8-1.8); Alk Phos 119 U/L (50-136); Anion Gap 7 mmol/L (6-16); Aspartate Aminotrans (AST/SGOT 11 U/L (12-37); Bilirubin, Total 0.4 mg/dL (0.1-1.0); Blood Urea Nitrogen 7 mg/dL (8-24); CO2, Blood 29 mmol/L (21-32); Calcium, Blood 9.6 mg/dL (8.5-10.1); Chloride, Blood 105 mmol/L (98-108); Creatinine, Blood 0.44 mg/dL (0.40-1.00); Glomerular Filtration Rate >60 (60-); Glucose, Blood 96 mg/dL (70-99); Potassium, Blood 3.7 mmol/L (3.5-5.5); Sodium, Blood 141 mmol/L (136-145); Total Protein, Blood 7.3 g/dL (6.4-8.2)
== END ==
LOC: LAB 14:33 → LAB SHORT 14:33
PROVIDERS: Internal Medicine
DX: E78.5 Hyperlipidemia, unspecified (principal); R78.81 Bacteremia; T84.63XA Infection and inflammatory reaction due to internal fixation device of spine, initial encounter; B95.61 Methicillin susceptible Staphylococcus aureus infection as the cause of diseases classified elsewhere; G06.1 Intraspinal abscess and granuloma; S06.9X0S Unspecified intracranial injury without loss of consciousness, sequela; Z79.2 Long term (current) use of antibiotics
CPT/HCPCS: 80053; 85025; 85651; 86140

== ENCOUNTER → 2020-05-26 | Outpatient (CLI) | payer MEDICARE, OTHER ==
[2020-05-26 12:06] LABS: Alanine Aminotransfer (ALT/SGP <6 U/L (12-78); Albumin, Blood 2.2 g/dL (3.4-5.0); Albumin/Globulin Ratio 0.5 (0.8-1.8); Alk Phos 98 U/L (50-136); Anion Gap 5 mmol/L (6-16); Aspartate Aminotrans (AST/SGOT 29 U/L (12-37); Bilirubin, Total 0.5 mg/dL (0.1-1.0); Blood Urea Nitrogen 8 mg/dL (8-24); Bun/Creatinine Ratio 18.1 (12.0-20.0); CO2, Blood 26 mmol/L (21-32); Calcium, Blood 8.9 mg/dL (8.5-10.1); Chloride, Blood 108 mmol/L (98-108); Creatinine, Blood 0.44 mg/dL (0.40-1.00); Globulin, Blood 4.5 g/dL (2.2-4.0); Glomerular Filtration Rate >60 (60-); Glucose, Blood 93 mg/dL (70-99); Potassium, Blood 4.1 mmol/L (3.5-5.5); Sodium, Blood 139 mmol/L (136-145); Total Protein, Blood 6.7 g/dL (6.4-8.2)
== END | disposition home or self-care (01) ==
LOC: LAB SHORT 11:35 → LAB 11:35
PROVIDERS: Internal Medicine Infectious Disease
DX: T84.63XA Infection and inflammatory reaction due to internal fixation device of spine, initial encounter (principal); S06.9X0S Unspecified intracranial injury without loss of consciousness, sequela; E78.5 Hyperlipidemia, unspecified; G06.1 Intraspinal abscess and granuloma; R78.81 Bacteremia; B95.61 Methicillin susceptible Staphylococcus aureus infection as the cause of diseases classified elsewhere; Z79.2 Long term (current) use of antibiotics
CPT/HCPCS: 80053; 86140

== ENCOUNTER → 2020-06-03 | Outpatient (CLI) | payer MEDICARE, OTHER ==
[2020-06-03 11:38] LABS: BASOPHILS ABSOLUTE AUTO 0.04 K/mm3 (0.00-0.23); BASOPHILS PERCENT AUTO 1 % (0-2); EOSINOPHILS ABSOLUTE AUTO 0.36 K/mm3 (0.00-0.68); EOSINOPHILS PERCENT AUTO 7 % (0-6); Hemoglobin 9.9 g/dL (11.5-16.0); IMMATURE GRAN ABSOLUTE AUTO 0.04 K/mm3 (0.00-0.10); IMMATURE GRAN PERCENT AUTO 1 % (0-1); LYMPHOCYTES ABSOLUTE AUTO 1.48 K/mm3 (0.84-5.20); LYMPHOCYTES PERCENT AUTO 29 % (21-46); MONOCYTES ABSOLUTE AUTO 0.67 K/mm3 (0.16-1.47); MONOCYTES PERCENT AUTO 13 % (4-13); Mean Corpuscular Volume 87 fL (80-100); Mean Platelet Volume 8.9 fL (9.1-12.4); NEUTROPHILS ABSOLUTE AUTO 2.49 K/mm3 (1.96-9.15); NEUTROPHILS PERCENT AUTO 49 % (41-73); Platelet Count 443 K/mm3 (150-400); RDW Coefficient Variation 14.9 % (11.7-14.2); RDW Standard Deviation 47.8 fL (35.1-46.3); Red Blood Cell Count 3.81 M/mm3 (3.80-5.20); White Blood Cell Count 5.08 K/mm3 (4.00-11.30)
[2020-06-03 11:58] LABS: Alanine Aminotransfer (ALT/SGP 11 U/L (12-78); Albumin, Blood 2.5 g/dL (3.4-5.0); Albumin/Globulin Ratio 0.5 (0.8-1.8); Alk Phos 117 U/L (50-136); Anion Gap 8 mmol/L (6-16); Aspartate Aminotrans (AST/SGOT 13 U/L (12-37); Bilirubin, Total 0.4 mg/dL (0.1-1.0); Blood Urea Nitrogen 13 mg/dL (8-24); CO2, Blood 25 mmol/L (21-32); Calcium, Blood 9.7 mg/dL (8.5-10.1); Chloride, Blood 107 mmol/L (98-108); Creatinine, Blood 0.46 mg/dL (0.40-1.00); Globulin, Blood 5.1 g/dL (2.2-4.0); Glomerular Filtration Rate >60 (60-); Glucose, Blood 83 mg/dL (70-99); Potassium, Blood 3.9 mmol/L (3.5-5.5); Sodium, Blood 140 mmol/L (136-145); Total Protein, Blood 7.6 g/dL (6.4-8.2)
== END ==
LOC: OLS 11:25 → LAB SHORT 11:25
PROVIDERS: Internal Medicine
DX: T84.63XA Infection and inflammatory reaction due to internal fixation device of spine, initial encounter (principal); E78.5 Hyperlipidemia, unspecified; G06.1 Intraspinal abscess and granuloma; B95.61 Methicillin susceptible Staphylococcus aureus infection as the cause of diseases classified elsewhere; R78.81 Bacteremia; S06.9X0S Unspecified intracranial injury without loss of consciousness, sequela; Z79.2 Long term (current) use of antibiotics
CPT/HCPCS: 80053; 85025; 85651; 86140

== ENCOUNTER → 2020-06-09 | Outpatient (CLI) | payer MEDICARE, OTHER ==
[2020-06-09 18:04] LABS: BASOPHILS ABSOLUTE AUTO 0.07 K/mm3 (0.00-0.23); BASOPHILS PERCENT AUTO 1 % (0-2); EOSINOPHILS ABSOLUTE AUTO 0.58 K/mm3 (0.00-0.68); EOSINOPHILS PERCENT AUTO 10 % (0-6); Hematocrit 34.6 % (33.0-51.0); Hemoglobin 10.2 g/dL (11.5-16.0); IMMATURE GRAN ABSOLUTE AUTO 0.01 K/mm3 (0.00-0.10); IMMATURE GRAN PERCENT AUTO 0 % (0-1); LYMPHOCYTES ABSOLUTE AUTO 1.67 K/mm3 (0.84-5.20); LYMPHOCYTES PERCENT AUTO 30 % (21-46); MONOCYTES PERCENT AUTO 11 % (4-13); Mean Corpuscular HGB 25.8 pg (26.0-34.0); Mean Corpuscular HGB Conc 29.5 g/dL (31.5-36.5); Mean Corpuscular Volume 88 fL (80-100); Mean Platelet Volume 9.4 fL (9.1-12.4); NEUTROPHILS ABSOLUTE AUTO 2.69 K/mm3 (1.96-9.15); NEUTROPHILS PERCENT AUTO 48 % (41-73); Platelet Count 439 K/mm3 (150-400); RDW Coefficient Variation 14.8 % (11.7-14.2); RDW Standard Deviation 47.7 fL (35.1-46.3); Red Blood Cell Count 3.95 M/mm3 (3.80-5.20); White Blood Cell Count 5.62 K/mm3 (4.00-11.30)
[2020-06-09 18:39] LABS: Alanine Aminotransfer (ALT/SGP 15 U/L (12-78); Albumin, Blood 2.7 g/dL (3.4-5.0); Albumin/Globulin Ratio 0.6 (0.8-1.8); Alk Phos 101 U/L (50-136); Anion Gap 6 mmol/L (6-16); Aspartate Aminotrans (AST/SGOT 14 U/L (12-37); Bilirubin, Total 0.3 mg/dL (0.1-1.0); Blood Urea Nitrogen 12 mg/dL (8-24); Bun/Creatinine Ratio 19.5 (12.0-20.0); CO2, Blood 25 mmol/L (21-32); Calcium, Blood 9.1 mg/dL (8.5-10.1); Chloride, Blood 109 mmol/L (98-108); Creatinine, Blood 0.62 mg/dL (0.40-1.00); Globulin, Blood 4.3 g/dL (2.2-4.0); Glomerular Filtration Rate >60 (60-); Glucose, Blood 91 mg/dL (70-99); Potassium, Blood 3.8 mmol/L (3.5-5.5); Sodium, Blood 140 mmol/L (136-145)
== END ==
LOC: LAB 17:51 → LAB SHORT 17:51
PROVIDERS: Internal Medicine
DX: T84.63XA Infection and inflammatory reaction due to internal fixation device of spine, initial encounter (principal); S06.9X0S Unspecified intracranial injury without loss of consciousness, sequela; R78.81 Bacteremia; E78.5 Hyperlipidemia, unspecified; G06.1 Intraspinal abscess and granuloma; B95.61 Methicillin susceptible Staphylococcus aureus infection as the cause of diseases classified elsewhere; Z79.2 Long term (current) use of antibiotics
CPT/HCPCS: 80053; 85025; 85651; 86140

== ENCOUNTER → 2020-06-16 | Outpatient (CLI) | payer MEDICARE, OTHER ==
[2020-06-16 15:10] LABS: Hematocrit 35.6 % (33.0-51.0); Hemoglobin 10.4 g/dL (11.5-16.0); Mean Corpuscular HGB 25.9 pg (26.0-34.0); Mean Corpuscular HGB Conc 29.2 g/dL (31.5-36.5); Mean Corpuscular Volume 89 fL (80-100); Platelet Count 396 K/mm3 (150-400); RDW Coefficient Variation 14.6 % (11.7-14.2); RDW Standard Deviation 47.6 fL (35.1-46.3); Red Blood Cell Count 4.01 M/mm3 (3.80-5.20)
[2020-06-16 15:36] LABS: Alanine Aminotransfer (ALT/SGP 13 U/L (12-78); Albumin, Blood 2.8 g/dL (3.4-5.0); Albumin/Globulin Ratio 0.6 (0.8-1.8); Alk Phos 101 U/L (50-136); Anion Gap 5 mmol/L (6-16); Aspartate Aminotrans (AST/SGOT 14 U/L (12-37); Bilirubin, Total 0.6 mg/dL (0.1-1.0); Blood Urea Nitrogen 11 mg/dL (8-24); Bun/Creatinine Ratio 20.5 (12.0-20.0); CO2, Blood 29 mmol/L (21-32); Calcium, Blood 9.3 mg/dL (8.5-10.1); Chloride, Blood 107 mmol/L (98-108); Creatinine, Blood 0.54 mg/dL (0.40-1.00); Globulin, Blood 4.5 g/dL (2.2-4.0); Glomerular Filtration Rate >60 (60-); Glucose, Blood 84 mg/dL (70-99); Potassium, Blood 3.8 mmol/L (3.5-5.5); Sodium, Blood 141 mmol/L (136-145); Total Protein, Blood 7.3 g/dL (6.4-8.2)
== END | disposition home or self-care (01) ==
LOC: LAB 13:29 → LAB SHORT 13:29
PROVIDERS: Internal Medicine Infectious Disease
DX: R78.81 Bacteremia (principal)
CPT/HCPCS: 80053; 85027; 85651; 86140

== ENCOUNTER 2020-06-17 14:58 | Emergency (ER) | payer MEDICARE, OTHER ==
[~2020-06-17] VITALS: Ht 170.2 cm; Wt 64.9 kg
[2020-06-17 17:26] LABS: BASOPHILS ABSOLUTE AUTO 0.09 K/mm3 (0.00-0.23); BASOPHILS PERCENT AUTO 2 % (0-2); EOSINOPHILS ABSOLUTE AUTO 0.56 K/mm3 (0.00-0.68); EOSINOPHILS PERCENT AUTO 9 % (0-6); Hematocrit 38.2 % (33.0-51.0); Hemoglobin 11.2 g/dL (11.5-16.0); IMMATURE GRAN ABSOLUTE AUTO 0.02 K/mm3 (0.00-0.10); IMMATURE GRAN PERCENT AUTO 0 % (0-1); LYMPHOCYTES ABSOLUTE AUTO 1.74 K/mm3 (0.84-5.20); LYMPHOCYTES PERCENT AUTO 29 % (21-46); MONOCYTES ABSOLUTE AUTO 0.68 K/mm3 (0.16-1.47); MONOCYTES PERCENT AUTO 11 % (4-13); Mean Corpuscular HGB 25.7 pg (26.0-34.0); Mean Corpuscular HGB Conc 29.3 g/dL (31.5-36.5); Mean Corpuscular Volume 88 fL (80-100); Mean Platelet Volume 9.1 fL (9.1-12.4); NEUTROPHILS ABSOLUTE AUTO 3.02 K/mm3 (1.96-9.15); NEUTROPHILS PERCENT AUTO 49 % (41-73); Platelet Count 382 K/mm3 (150-400); RDW Coefficient Variation 14.5 % (11.7-14.2); RDW Standard Deviation 46.8 fL (35.1-46.3); Red Blood Cell Count 4.35 M/mm3 (3.80-5.20); White Blood Cell Count 6.11 K/mm3 (4.00-11.30)
[2020-06-17 17:57] LABS: Alanine Aminotransfer (ALT/SGP 6 U/L (12-78); Albumin, Blood 3.1 g/dL (3.4-5.0); Albumin/Globulin Ratio 0.7 (0.8-1.8); Alk Phos 104 U/L (50-136); Anion Gap 7 mmol/L (6-16); Aspartate Aminotrans (AST/SGOT 13 U/L (12-37); Bilirubin, Total 0.3 mg/dL (0.1-1.0); Blood Urea Nitrogen 14 mg/dL (8-24); Bun/Creatinine Ratio 22.7 (12.0-20.0); CO2, Blood 29 mmol/L (21-32); Chloride, Blood 105 mmol/L (98-108); Creatinine, Blood 0.62 mg/dL (0.40-1.00); Globulin, Blood 4.6 g/dL (2.2-4.0); Glomerular Filtration Rate >60 (60-); Glucose, Blood 98 mg/dL (70-99); Potassium, Blood 4.3 mmol/L (3.5-5.5); Sodium, Blood 141 mmol/L (136-145); Total Protein, Blood 7.7 g/dL (6.4-8.2); Troponin I <0.015 ng/mL (0.000-0.040)
== END 2020-06-17 22:11 | disposition home or self-care (01) ==
LOC: ER 14:58
PROVIDERS: Emergency Medicine
DX: R06.02 Shortness of breath (principal); R07.9 Chest pain, unspecified; R91.1 Solitary pulmonary nodule; F32.9 Major depressive disorder, single episode, unspecified; K21.9 Gastro-esophageal reflux disease without esophagitis; Z88.2 Allergy status to sulfonamides; Z88.1 Allergy status to other antibiotic agents; Z79.899 Other long term (current) drug therapy; Z87.891 Personal history of nicotine dependence
CPT/HCPCS: 71045; 71260; 80053; 83880; 84484; 85025; 93005; 93010; 96374-59; 99284-25; J2060; Q9967

== ENCOUNTER → 2020-06-23 | Outpatient (CLI) | payer MEDICARE, OTHER ==
[2020-06-23 13:59] LABS: Hematocrit 39.6 % (33.0-51.0); Hemoglobin 11.6 g/dL (11.5-16.0); Mean Corpuscular HGB 25.6 pg (26.0-34.0); Mean Corpuscular HGB Conc 29.3 g/dL (31.5-36.5); Mean Corpuscular Volume 87 fL (80-100); Mean Platelet Volume 10.2 fL (9.1-12.4); Platelet Count 346 K/mm3 (150-400); RDW Coefficient Variation 14.2 % (11.7-14.2); RDW Standard Deviation 45.7 fL (35.1-46.3); Red Blood Cell Count 4.54 M/mm3 (3.80-5.20); White Blood Cell Count 6.36 K/mm3 (4.00-11.30)
[2020-06-23 14:08] LABS: Alanine Aminotransfer (ALT/SGP 16 U/L (12-78); Albumin/Globulin Ratio 0.6 (0.8-1.8); Alk Phos 105 U/L (50-136); Anion Gap 7 mmol/L (6-16); Aspartate Aminotrans (AST/SGOT 18 U/L (12-37); Bilirubin, Total 0.3 mg/dL (0.1-1.0); Blood Urea Nitrogen 14 mg/dL (8-24); Bun/Creatinine Ratio 27.8 (12.0-20.0); CO2, Blood 28 mmol/L (21-32); Calcium, Blood 9.4 mg/dL (8.5-10.1); Chloride, Blood 102 mmol/L (98-108); Globulin, Blood 4.8 g/dL (2.2-4.0); Glomerular Filtration Rate >60 (60-); Glucose, Blood 102 mg/dL (70-99); Potassium, Blood 3.8 mmol/L (3.5-5.5); Sodium, Blood 137 mmol/L (136-145); Total Protein, Blood 7.8 g/dL (6.4-8.2)
== END | disposition home or self-care (01) ==
LOC: LAB SHORT 12:45 → LAB 12:45
PROVIDERS: Family Medicine
DX: T84.63XA Infection and inflammatory reaction due to internal fixation device of spine, initial encounter (principal); E78.5 Hyperlipidemia, unspecified; R78.81 Bacteremia; Z79.2 Long term (current) use of antibiotics
CPT/HCPCS: 80053; 85027; 85651; 86140

== ENCOUNTER → 2023-03-23 | Outpatient (CLI) | payer MEDICARE, OTHER | END | disposition home or self-care (01) | LOC: LAB SHORT 16:34 → LAB 16:34 | DX: R30.0 Dysuria (principal) | CPT/HCPCS: 87077; 87086; 87186 ==

== ENCOUNTER 2024-09-04 05:23 | Emergency (ER) | payer OTHER, MEDICARE ==
[~2024-09-04] VITALS: Ht 170.2 cm; Wt 81.7 kg
[2024-09-04] MEDS ORDERED: Ketorolac Tromethamine 30mg Vial IV ONE (06:20)
[2024-09-04] MEDS ORDERED: Methocarbamol 500 MG Tab PO ONE (06:20)
[2024-09-04] MEDS ORDERED: Morphine Sulfate IR 15 MG Tab PO ONE (06:25)
[2024-09-04 06:59] LABS: BASOPHILS ABSOLUTE AUTO 0.04 K/mm3 (0.00-0.23); BASOPHILS PERCENT AUTO 1 % (0-2); EOSINOPHILS ABSOLUTE AUTO 0.19 K/mm3 (0.00-0.68); EOSINOPHILS PERCENT AUTO 3 % (0-6); Hematocrit 36.2 % (33.0-51.0); Hemoglobin 11.3 g/dL (11.5-16.0); IMMATURE GRAN ABSOLUTE AUTO 0.02 K/mm3 (0.00-0.10); IMMATURE GRAN PERCENT AUTO 0 % (0-1); LYMPHOCYTES ABSOLUTE AUTO 1.85 K/mm3 (0.84-5.20); LYMPHOCYTES PERCENT AUTO 33 % (21-46); MONOCYTES ABSOLUTE AUTO 0.51 K/mm3 (0.16-1.47); MONOCYTES PERCENT AUTO 9 % (4-13); Mean Corpuscular HGB Conc 31.2 g/dL (31.5-36.5); Mean Corpuscular Volume 86 fL (80-100); Mean Platelet Volume 8.6 fL (9.1-12.4); NEUTROPHILS ABSOLUTE AUTO 3.09 K/mm3 (1.96-9.15); NEUTROPHILS PERCENT AUTO 54 % (41-73); Platelet Count 385 K/mm3 (150-400); RDW Coefficient Variation 14.8 % (11.7-14.2); Red Blood Cell Count 4.19 M/mm3 (3.80-5.20)
[2024-09-04 07:28] LABS: Acetaminophen, Random 14.9 ug/mL (10.0-30.0); Salicylate <1.7 mg/dL (2.8-20.0)
[2024-09-04] MEDS ORDERED: REMERON1510 PO (07:37)
[2024-09-04 07:39] LABS: Alanine Aminotransfer (ALT/SGP 26 U/L (12-78); Albumin, Blood 3.4 g/dL (3.4-5.0); Albumin/Globulin Ratio 0.9 (0.8-1.8); Alk Phos 77 U/L (50-136); Anion Gap 11 mmol/L (3-11); Aspartate Aminotrans (AST/SGOT 31 U/L (12-37); Bilirubin, Direct <0.1 mg/dL (0.0-0.3); Bilirubin, Indirect Unable to Calculate mg/dL (0.1-0.7); Bilirubin, Total 0.3 mg/dL (0.1-1.0); Blood Urea Nitrogen 15 mg/dL (8-24); Bun/Creatinine Ratio 17.8 (12.0-20.0); CO2, Blood 23 mmol/L (21-32); Calcium, Blood 9.2 mg/dL (8.5-10.1); Chloride, Blood 113 mmol/L (98-108); Creatinine, Blood 0.84 mg/dL (0.40-1.00); Globulin, Blood 3.9 g/dL (2.2-4.0); Glomerular Filtration Rate 75 (60-); Glucose, Blood 100 mg/dL (70-99); Potassium, Blood 3.8 mmol/L (3.5-5.5); Sodium, Blood 143 mmol/L (136-145); Total Protein, Blood 7.3 g/dL (6.4-8.2)
[2024-09-04] MEDS ORDERED: Morphine Sulfat15 MG PO (08:02)
[2024-09-04] MEDS ORDERED: Robaxin750 MG PO (08:02)
[2024-09-04 08:40] VITALS: BP 99/57
== END 2024-09-04 08:47 | disposition home or self-care (01) ==
LOC: ER 05:23
PROVIDERS: Student in an Organized Health Care Education/Training Program
DX: S39.012A Strain of muscle, fascia and tendon of lower back, initial encounter (principal); S70.02XA Contusion of left hip, initial encounter; T39.1X1A Poisoning by 4-Aminophenol derivatives, accidental (unintentional), initial encounter; K21.9 Gastro-esophageal reflux disease without esophagitis; W01.0XXA Fall on same level from slipping, tripping and stumbling without subsequent striking against object, initial encounter; Z87.891 Personal history of nicotine dependence; Z79.899 Other long term (current) drug therapy; Z88.1 Allergy status to other antibiotic agents
CPT/HCPCS: 73502; 80048; 80076; 85025; 93005; 93010; 99284-25; A9270; G0480

== ENCOUNTER → 2024-09-19 | Outpatient (CLI) | payer OTHER ==
[~2024-09-19] MED LIST changes: +Morphine Sulfat15 MG PO; +REMERON1510 PO; +Robaxin750 MG PO
== END | disposition home or self-care (01) ==
LOC: LAB 18:21 → LAB SHORT 18:21
DX: N39.0 Urinary tract infection, site not specified (principal)
CPT/HCPCS: 87077; 87086; 87186